=== PATIENT | female | born 1960 | race Caucasian/White ===

== ENCOUNTER 2020-06-15 09:12 | Outpatient (REF) | payer MEDICAID, SELFPAY ==
--- NOTE | ~2020-06-15 | US_ITS ---
EXAMINATION: US ABDOMEN COMPLETE CLINICAL INFORMATION: Evaluate for fatty liver disease. COMPARISON: None TECHNIQUE: Real-time imaging of the abdominal viscera. Technically limited study secondary to bowel gas and body habitus. FINDINGS: PANCREAS: The visualized head and body of the pancreas appears unremarkable. Remainder of the pancreas is obscured by bowel gas. ABDOMINAL AORTA: The proximal, mid, and distal segments are normal in caliber. INFERIOR VENA CAVA: Visualized portions are normal. LIVER: The liver is normal in size. The liver contour is normal. Diffuse increased echogenicity. No focal hepatic lesion. There is no intrahepatic biliary duct dilatation seen. GALLBLADDER: Normal. The gallbladder is physiologically distended without evidence of stones, sludge, polyps, wall thickening or pericholecystic fluid. COMMON BILE DUCT: Normal in caliber measuring 0.2 cm in diameter. RIGHT KIDNEY: Normal. No hydronephrosis. No renal calculi or focal parenchymal lesions. The kidney measures 12.6 cm in maximum dimension. LEFT KIDNEY: Normal. No hydronephrosis. No renal calculi or focal parenchymal lesions. The kidney measures 12.6 cm in maximum dimension. SPLEEN: Normal. The spleen measures 11.6 cm in maximum dimension. FREE FLUID: None. Study somewhat limited due to body habitus and bowel gas. US/US abdomen complete IMPRESSION: 1. Echogenic liver parenchyma, nonspecific, more commonly seen with hepatic steatosis. No focal lesions. No biliary duct dilatation. 2. Otherwise, unremarkable study.
== END 2020-06-15 09:13 | disposition home or self-care (01) ==
LOC: HO.US 09:12
PROVIDERS: Visit Provider General Practice
DX: R74.01 Elevation of levels of liver transaminase levels (principal)
CPT/HCPCS: 76700

== ENCOUNTER 2020-07-13 11:11 | Outpatient (REF) | payer MEDICAID, SELFPAY ==
--- NOTE | ~2020-07-13 | MM_ITS ---
EXAMINATION: MM SCREENING DIGITAL BREAST TOMOSYNTHESIS, BILATERAL CLINICAL INFORMATION: Screening. Asymptomatic. The lifetime risk of breast cancer based on the Tyrer-Cuzick Model is 4%. COMPARISON: Mammography: 06/09/2018, 05/26/2017, 11/22/2016, 09/15/2013 TECHNIQUE: Digital breast tomosynthesis is performed in both the craniocaudal and mediolateral oblique views along with computer-aided detection (CAD). Synthesized 2D images are generated from the tomosynthesis. FINDINGS: There are scattered areas of fibroglandular density (ACR BI-RADS breast composition Category b). There are no significant masses, abnormal calcifications, or other abnormalities. Parenchymal pattern is similar to prior studies. Scattered minor asymmetries are stable. No developing density. No significant changes. MM/MM tomosynthesis screening BI IMPRESSION: No mammographic evidence of malignancy. ASSESSMENT: BI-RADS 2: Benign RECOMMENDATION: Routine annual mammography screening. This patient's information was entered into a reminder system with a target due date for their next mammogram.
== END 2020-07-13 11:12 | disposition home or self-care (01) ==
LOC: HO.MAMMO 11:11
PROVIDERS: PCP General Practice; Visit Provider General Practice
DX: Z12.31 Encounter for screening mammogram for malignant neoplasm of breast (principal)
CPT/HCPCS: 77063; 77067

== ENCOUNTER 2023-03-07 12:18 | Outpatient (REF) | payer MEDICAID, SELFPAY ==
[2023-03-07 13:18] LABS: MANUAL DIFF FLAG NO
[2023-03-07 13:41] LABS: Basophils Absolute Auto 0.1 X10*3/uL (0.0-0.2); Basophils Percent Auto 1.2 % (0-2); Eosinophils Absolute Auto 0.2 X10*3/uL (0.0-0.4); Eosinophils Percent Auto 4.4 % (0-4); Hematocrit 44.2 % (37.0-47.0); Hemoglobin 14.6 g/dl (12.0-16.0); Imm Gran Abs Auto 0.01 X10*3/uL (0.00-0.03); Imm Gran Pct Auto 0.2 % (0.0-0.4); Lymphocytes Absolute Auto 1.5 X10*3/uL (1.2-4.9); Lymphocytes Percent Auto 34.3 % (20-40); Mean Corpuscular Hemoglobin 31.7 pg (27.0-33.0); Mean Corpuscular Volume 95.9 fL (80.0-98.0); Mean Platelet Volume 11.1 fL (9.4-12.3); Monocytes Absolute Auto 0.5 X10*3/uL (0.1-1.2); Monocytes Percent Auto 12.4 % (2-11); Neutrophils Absolute Auto 2.1 x10*3/uL (2.0-8.3); Neutrophils Percent Auto 47.5 % (45-73); Platelet Count 243 X10*3/uL (160-400); Red Blood Count 4.61 X10*6/uL (4.20-5.50); Red Cell Distribution Width 12.6 % (11.0-16.0); White Blood Count 4.3 X10*3/uL (4.8-10.8)
[2023-03-07 13:52] LABS: Estimated Average Glucose 146 mg/dL; Hemoglobin A1c % 6.7 % (<6.0)
[2023-03-07 14:13] LABS: Alanine Aminotransferase 192 U/L (0-31); Albumin Level 3.4 g/dL (3.5-5.0); Alkaline Phosphatase 195 U/L (39-117); Anion Gap 12 (12-20); Aspartate Amino Transferase 130 U/L (5-31); Bilirubin Total 0.8 mg/dL (0.0-1.0); Blood Urea Nitrogen 11 mg/dL (9-16); Calcium 9.4 mg/dL (8.4-10.2); Carbon Dioxide 27 mmol/L (22-29); Chloride 103 mmol/L (96-108); Estimated Glomerular Filt Rate > 60; Glucose Random 134 mg/dL (60-115); Potassium 3.8 mmol/L (3.3-5.1); Sodium 138 mmol/L (135-145); Total Protein 7.8 g/dL (6.5-8.0)
== END 2023-03-07 12:19 | disposition home or self-care (01) ==
LOC: HO.HHCL 12:18
PROVIDERS: Visit Provider General Practice
DX: I16.0 Hypertensive urgency (principal)
CPT/HCPCS: 36415; 80053; 83036; 85025

== ENCOUNTER 2023-03-07 13:11 | Emergency (ER) | payer MEDICAID, SELFPAY ==
--- NOTE | ~2023-03-07 | CT_ITS ---
EXAMINATION: CT HEAD WITHOUT CONTRAST CLINICAL INFORMATION: Blurred vision, hypotensive COMPARISON: None available. TECHNIQUE: Contiguous axial imaging was performed from the skull base to vertex without intravenous administration of contrast. This CT examination was performed using dose optimization techniques as appropriate, variously including the following: *Automated exposure control *Adjustment of mA and/or kV according to patient size (this includes techniques or standardized protocols for targeted exams where dose is matched to indication/reason for exam; i.e. extremities or head) *Use of iterative reconstruction technique DLP: 672 mGy-cm FINDINGS: There is no acute intra-axial, extra-axial bleed, masses or midline shift. There is no acute infarction in evolution. There is no edema. No abnormality seen in the posterior fossa. The lateral ventricles are symmetrical in size and configuration without enlargement. Bone windows reveal no calvarial abnormality. Bilateral paranasal sinuses and mastoid air cells are well-aerated. CT/CT head/brain wo IV con IMPRESSION: No acute intracranial process seen.
[2023-03-07 13:16] VITALS: BP 169/67; PULSE 77; RESP 16; TEMP 36.2; O2SAT 94; BMI 43.5
--- NOTE | 2023-03-07 13:17 | ED.GENADULT ---
HPI - General Adult General Chief complaint: Recheck/Abnormal Lab/Rx Stated complaint: ? Infection Both Eyes Time Seen by Provider: 03/07/23 23:28 History of Present Illness HPI narrative: The patient is a 62-year-old woman who had a scheduled appointment with her PCP today. Apparently her blood pressure was high at the PCPs office. With the patient told the primary care doctor that she had not taken her antihypertensive medications for her for the past couple of weeks because she feels dizzy. The patient reported that she had some visual blurriness. The PCP was concerned about the possibility of retinal hemorrhages and sent the patient to the emergency room. Apparently the blood pressure was 208/108. The patient had been given 0.2 mg of oral clonidine at the office before coming to the emergency room. The patient has also complained of mild headache and shortness of breath. Related Data Previous Rx's Medication Instructions Recorded diclofenac sodium 75 mg 75 mg PO BID 30 days #60 tabs 01/04/21 tablet,delayed release Allergies Allergy/AdvReac Type Severity Reaction Status Date / Time lisinopril [LISINOPRIL] Allergy Unknown COUGH Verified 03/07/23 13:16 lisinopril Allergy Unknown Cough Uncoded 03/07/23 13:16 Review of Systems Review of Systems: Yes all other systems are reviewed and are negative PMFSH Social History Social History Advance Directives: No Advance Directives Information Provided: No Physical Exam ED Vital Signs: Vital Signs - 24 hr 03/07/23 13:16 03/07/23 20:28 03/07/23 22:44 Temperature 97.2 F 97.9 F Pulse Rate 77 67 Respiratory Rate 16 16 Blood Pressure 169/67 H 198/86 H 133/61 Pulse Oximetry 94 96 Oxygen Delivery Method Room Air Room Air BMI result Body Mass Index 43.5 Const Other: The patient is awake, alert, pleasant, cooperative. She does not appear in any distress or seem acutely ill in any way. HENMT Other: Face is symmetrical. Tongue is midline. Mucous membranes moist. Eyes Other: Pupils are round equal, conjunctivae are clear, extraocular movements are intact, retinal exam of the undilated pupils seemed unremarkable to me. I did not appreciate the presence of any definite retinal abnormalities. Neck Other: No JVD, moving her neck easily Resp Other: Lungs are clear bilaterally, no sign of respiratory difficulty. Cardio Other: The patient had a regular rate and rhythm with no murmur Skin Other: Skin is dry and unremarkable Neuro Other: The patient is awake and alert and appropriate. She has a normal mental status. She does not seem uncomfortable. She is very pleasant. The face is symmetrical. Eye movements are normal. Pupillary responses are normal. Speech is normal. Moves all 4 extremities normally and appropriately. She seems completely neurologically intact. Visual acuity in the right eye was 20/50, visual acuity in the left eye was 20/70, bilateral visual acuity was 20/40. All of these visual acuities are uncorrected. The patient says that she normally wears glasses for distance vision but she did not have her glasses with her. Extrem Other: No peripheral edema. Think is all much classes are distant and reading in all before we did okay as a IV get a to but not affect the FX a chest the ABS I did that the distance vision and I think it Course Course Course Narrative: This is a rapid medical exam: Additional HPI, ROS, PE not included below will be deferred to primary provider. Patient is a 62-year-old female presenting to the ED from PCP office (Dr. Amador) with concern for bilateral retinal hemorrhages. Patient reports blurred vision in both eyes for several days. Patient states she has not been taking her BP medications because they make her dizzy. BP at PCP office was 208/108, pt medicated with 0.2mg clonidine in the office. BP elevated but improved from prior in triage. Pt also complains of mild headache and shortness of breath. Plan: tire inspector notified of patient; visual acuity, viral swabs Medical Decision Making Medical Decision Making [facility] Narrative: The patient is a 62-year-old female who was sent to the emergency room from her primary care provider's office. She had presented to the primary care provider's office today for a scheduled general physical. She was found to be hypertensive at 208/108. The patient admitted that she had not been taking her antihypertensive medication recently. She was given 0.2 mg of clonidine at the office and referred to the emergency room. There was concern about possible retinal hemorrhages. On my exam I did not appreciate any definite retinal abnormalities. Otherwise the patient seems quite stable and asymptomatic. Ultimately her blood pressure came down quite well as a was 133/61. Her EKG is unremarkable. A head CT had been ordered at triage that was negative. I think the patient may be discharged with instructions to resume her prescribed antihypertensive medications and to try to follow-up with an fiber worker. Lab Data 03/07/23 15:45 03/07/23 15:45 Labs: Lab Results 03/07/23 03/07/23 Range/Units 13:53 15:45 WBC 4.3 L (4.8-10.8) X10*3/uL RBC 4.62 (4.20-5.50) X10*6/uL Hgb 14.5 (12.0-16.0) g/dl Hct 43.1 (37.0-47.0) % MCV 93.3 (80.0-98.0) fL MCH 31.4 (27.0-33.0) pg MCHC 33.6 (31.0-35.0) g/dl RDW 12.8 (11.0-16.0) % Plt Count 253 (160-400) X10*3/uL MPV 10.0 (9.4-12.3) fL Immature Gran % (Auto) 0.2 (0.0-0.4) % Neut % (Auto) 45.0 (45-73) % Lymph % (Auto) 38.2 (20-40) % [place] % (Auto) 11.3 H (2-11) % Eos % (Auto) 4.6 H (0-4) % Baso % (Auto) 0.7 (0-2) % Lymph # (Auto) 1.7 (1.2-4.9) X10*3/uL [place] # (Auto) 0.5 (0.1-1.2) X10*3/uL Eos # (Auto) 0.2 (0.0-0.4) X10*3/uL Baso # (Auto) 0.0 (0.0-0.2) X10*3/uL Abs Immat Gran (auto) 0.01 (0.00-0.03) X10*3/uL Absolute Neuts (auto) 1.9 L (2.0-8.3) x10*3/uL Absolute Nucleated RBC 0.000 (0.0-0.012) X10*3/uL Nucleated RBC % (auto) 0.0 (0.0-0.2) /100WBC PT 12.4 (11.1-13.3) SEC INR 1.0 (0.9-1.1) Sodium 139 (135-145) mmol/L Potassium 4.2 (3.3-5.1) mmol/L Chloride 105 (96-108) mmol/L Carbon Dioxide 27 (22-29) mmol/L Anion Gap 11 L (12-20) BUN 12 (9-16) mg/dL Creatinine 0.76 (0.5-1.4) mg/dL Estim Creat Clear Calc 92.1 Estimated GFR > 60 Random Glucose 130 H (60-115) mg/dL Calcium 9.2 (8.4-10.2) mg/dL COVID-19 (JURGEN) Negative (Negative) COVID-19 Clin Com See Note Influenza Type A (DARRIUS) Negative (Negative) Influenza Type B (DARRIUS) Negative (Negative) Influenza A & B Note See Note Independent Interpretation I performed an independent interpretation of an: EKG Interpretation: He EKG at 23:49 shows normal sinus rhythm at 67 beats per minute. There is an incomplete right bundle-branch block. No acute ischemic changes. Discharge Plan Discharge Clinical Impression: Hypertension Patient Disposition: Home, Self-Care Additional Instructions: please resume your normal blood pressure medications. Please contact the [facility] on Friday. Please ask for an appointment with the eye doctors to get a more formal evaluation of your eyes and your vision. Return to the emergency room if you feel significantly worse before then. Prescriptions: No Action diclofenac sodium 75 mg tablet,delayed release (DR/EC) 75 mg PO BID 30 Days Qty: 60 3RF Referrals: Lashell [place] MD [Primary Care Provider] - (Hypertension, need for ophthalmology appointment) Interventions: ED Discharge Assessment Last Done: 03/08/23 00:09 Discharge Date/Time: 03/08/23 00:12
[2023-03-07 14:13] LABS: COVID-19 Test Negative (Negative); IDNOW Serial# 58CA691E
[2023-03-07 14:14] LABS: IDNOW Serial# 9DB6401D; Influenza A Negative (Negative); Influenza B2 Negative (Negative)
[2023-03-07 15:53] LABS: MANUAL DIFF FLAG NO
[2023-03-07 15:54] LABS: Basophils Percent Auto 0.7 % (0-2); Eosinophils Absolute Auto 0.2 X10*3/uL (0.0-0.4); Eosinophils Percent Auto 4.6 % (0-4); Hematocrit 43.1 % (37.0-47.0); Hemoglobin 14.5 g/dl (12.0-16.0); Imm Gran Abs Auto 0.01 X10*3/uL (0.00-0.03); Imm Gran Pct Auto 0.2 % (0.0-0.4); Lymphocytes Absolute Auto 1.7 X10*3/uL (1.2-4.9); Lymphocytes Percent Auto 38.2 % (20-40); Mean Corpuscular HGB Conc 33.6 g/dl (31.0-35.0); Mean Corpuscular Hemoglobin 31.4 pg (27.0-33.0); Mean Corpuscular Volume 93.3 fL (80.0-98.0); Monocytes Absolute Auto 0.5 X10*3/uL (0.1-1.2); Monocytes Percent Auto 11.3 % (2-11); Neutrophils Absolute Auto 1.9 x10*3/uL (2.0-8.3); Platelet Count 253 X10*3/uL (160-400); Red Blood Count 4.62 X10*6/uL (4.20-5.50); Red Cell Distribution Width 12.8 % (11.0-16.0); White Blood Count 4.3 X10*3/uL (4.8-10.8)
[2023-03-07 16:01] LABS: Prothrombin Time 12.4 SEC (11.1-13.3)
[2023-03-07 16:07] LABS: Anion Gap 11 (12-20); Blood Urea Nitrogen 12 mg/dL (9-16); Calcium 9.2 mg/dL (8.4-10.2); Carbon Dioxide 27 mmol/L (22-29); Chloride 105 mmol/L (96-108); Creatinine Clr Calc Pharmacy 92.1; Estimated Glomerular Filt Rate > 60; Glucose Random 130 mg/dL (60-115); Potassium 4.2 mmol/L (3.3-5.1); Sodium 139 mmol/L (135-145)
[2023-03-07 20:28] VITALS: BP 198/86; PULSE 67; RESP 16; TEMP 36.6; O2SAT 96
[2023-03-07 22:44] VITALS: BP 133/61
--- NOTE | 2023-03-07 23:43 | ECG_ITS ---
Test Reason : HIGH bp Blood Pressure : / mmHG Vent. Rate : 067 BPM Atrial Rate : 067 BPM P-R Int : 164 ms QRS Dur : 104 ms QT Int : 464 ms P-R-T Axes : 009 020 068 degrees QTc Int : 490 ms Normal sinus rhythm Incomplete right bundle branch block Prolonged QT Abnormal ECG No previous ECGs available Referred By: Chino Truong Electronically Signed By:TASHA FLOWERS
== END 2023-03-08 00:12 | disposition home or self-care (01) ==
PROVIDERS: Registered Nurse Emergency; Emergency Provider Emergency Medicine; PCP General Practice
DX: I10 Essential (primary) hypertension (principal); R42 Dizziness and giddiness; H53.8 Other visual disturbances; Z11.52 Encounter for screening for COVID-19
CPT/HCPCS: 36415; 70450; 80048; 85025; 85610; 87502; 87635; 93005; 99284

== ENCOUNTER → 2023-03-07 23:43 | Outpatient (BNV) | payer MEDICAID, SELFPAY | PROVIDERS: Emergency Provider Emergency Medicine; PCP General Practice; Visit Provider Internal Medicine | DX: I45.10 Unspecified right bundle-branch block (principal); I45.81 Long QT syndrome | CPT/HCPCS: 93010 ==

== ENCOUNTER 2023-05-12 15:20 | Outpatient (REF) | payer MEDICAID, SELFPAY ==
--- NOTE | ~2023-05-12 | XR_ITS ---
EXAMINATION: XR KNEE, BILATERAL CLINICAL INFORMATION: Chronic pain in both knees. COMPARISON: 10/26/2018 AP bilateral knees. TECHNIQUE: AP, lateral and axial views of bilateral knees. FINDINGS: RIGHT KNEE: Small joint effusion. Moderate medial joint space narrowing with small marginal osteophytes. Small posterior patellar osteophytes. LEFT KNEE: Mild medial joint space narrowing. Small joint effusion. Tiny marginal osteophytes. XR/XR knee LT 3V IMPRESSION: 1. Moderate degenerative changes right knee. 2. Mild degenerative changes left knee.
--- NOTE | ~2023-05-12 | XR_ITS ---
EXAMINATION: XR KNEE, BILATERAL CLINICAL INFORMATION: Chronic pain in both knees. COMPARISON: 10/26/2018 AP bilateral knees. TECHNIQUE: AP, lateral and axial views of bilateral knees. FINDINGS: RIGHT KNEE: Small joint effusion. Moderate medial joint space narrowing with small marginal osteophytes. Small posterior patellar osteophytes. LEFT KNEE: Mild medial joint space narrowing. Small joint effusion. Tiny marginal osteophytes. XR/XR knee RT 3V IMPRESSION: 1. Moderate degenerative changes right knee. 2. Mild degenerative changes left knee.
== END 2023-05-12 15:21 | disposition home or self-care (01) ==
LOC: HO.HHCX 15:20
PROVIDERS: Visit Provider General Practice
DX: M25.561 Pain in right knee (principal); M25.562 Pain in left knee; G89.29 Other chronic pain
CPT/HCPCS: 73562

== ENCOUNTER 2024-04-08 11:04 | Outpatient (REF) | payer MEDICAID, SELFPAY ==
[2024-04-08 13:01] LABS: MANUAL DIFF FLAG NO
[2024-04-08 13:12] LABS: Basophils Percent Auto 0.8 % (0-2); Eosinophils Absolute Auto 0.2 X10*3/uL (0.0-0.4); Eosinophils Percent Auto 3.8 % (0-4); Hematocrit 43.6 % (37.0-47.0); Hemoglobin 14.7 g/dl (12.0-16.0); Imm Gran Abs Auto 0.02 X10*3/uL (0.00-0.03); Imm Gran Pct Auto 0.4 % (0.0-0.4); Lymphocytes Absolute Auto 1.6 X10*3/uL (1.2-4.9); Mean Corpuscular HGB Conc 33.7 g/dl (31.0-35.0); Mean Corpuscular Hemoglobin 30.7 pg (27.0-33.0); Mean Platelet Volume 10.6 fL (9.4-12.3); Monocytes Absolute Auto 0.5 X10*3/uL (0.1-1.2); Monocytes Percent Auto 11.1 % (2-11); Neutrophils Absolute Auto 2.4 x10*3/uL (2.0-8.3); Neutrophils Percent Auto 49.9 % (45-73); Platelet Count 249 X10*3/uL (160-400); Red Blood Count 4.79 X10*6/uL (4.20-5.50); Red Cell Distribution Width 12.5 % (11.0-16.0); White Blood Count 4.8 X10*3/uL (4.8-10.8)
[2024-04-08 13:17] LABS: Appearance Urine Cloudy; Color Urine Dark Yellow; Glucose Urine UA Negative (Negative); Leukocyte Esterase Urine Trace (Negative); Nitrite Urine Negative (Negative); Specific Gravity - Urine 1.025 (1.005-1.025); UMIC TRIGGER UACC YES; Urine Blood Negative (Negative); Urine Ketones Trace mg/dL (Negative); Urine Protein Trace mg/dL (Neg-Trace)
[2024-04-08 13:27] LABS: Estimated Average Glucose 166 mg/dL; Hemoglobin A1C 222.1982 umol/L; Hemoglobin A1c % 7.4 % (<6.0)
[2024-04-08 13:28] LABS: Bacteria Urine 1+ (None Seen); Hyaline Casts Urine 0-2 /LPF (0-2); RBC Urine 0-2 /HPF (0-2); WBC Urine 0-5 /HPF (0-5)
[2024-04-08 13:58] LABS: Alanine Aminotransferase 57 U/L (0-31); Albumin Level 3.6 g/dL (3.5-5.0); Alkaline Phosphatase 154 U/L (39-117); Anion Gap 10 (12-20); Aspartate Amino Transferase 56 U/L (5-31); Bilirubin Total 0.7 mg/dL (0.0-1.0); Blood Urea Nitrogen 12 mg/dL (9-16); Calcium 8.8 mg/dL (8.4-10.2); Carbon Dioxide 27 mmol/L (22-29); Chloride 106 mmol/L (96-108); Cholesterol 216 mg/dL (<200); Estimated Glomerular Filt Rate > 60; Glucose Random 150 mg/dL (60-115); HDL Cholesterol 58 mg/dL (>40); LDL Cholesterol Calculated 136 mg/dL (<100); Potassium 3.8 mmol/L (3.3-5.1); Sodium 139 mmol/L (135-145); Triglycerides 113 mg/dL (<150)
[2024-04-08 14:16] LABS: TSH reflex Free T4 3.88 uIU/mL (0.32-4.0)
--- OUTSIDE RECORDS SUMMARY | 2024-04-08 14:58 | XMS_ITS | Encounter Summary ---
Author Organization [employer] Address [address] [place] [address] Care Team Providers Care Account Officer Name Role Phone Lashell [place] MD Primary Care Provider [phone] Reason for Visit * Reason Onset Date Comments Prior Authorization 07/25/2022 Encounter Details Date Type Department Care Team ([facility] st Contact Info) Description 07/25/2022 Telephone [facility] [address] [place] [address] Lashell [place] MD [address] [place] [address] Prior Authorization Social History Tobacco Use Types Packs/Day Years Used Date Smoking Tobacco: Never Smokeless Tobacco: Never Alcohol Use Standard Drinks/Week Comments Never 0 (1 standard drink = 0.6 oz pur e alcohol) Depression Answer Date Recorded Patient Health Questionnaire-9 Score 18 06/26/2023 Patient Health Questionnaire-9 Score 18 06/26/2023 Last PHQ-9: Questionnaire Data Not on file 0 06/26/2023 Housing Stability Answer Date Recorded What is your housing situation today? I have broderick bansal 08/08/[address] you li ve. Do you have problems with any of the following? None of the above 08/08/2023 Food Insecurity Answer Date Recorded Within the past 12 months, y ou worried that your food would run out before you got money to buy more: Never True 08/08/2023 Within the past 12 months,th e food you bought just didn't last and you didn't have enough money to get more: Never True Transportation Answer Date Recorded In the past 12 months, has l ack of transportation kept you from medical appts, meetings, work or from getting things needed for daily living? No 08/08/2023 Utilities Answer Date Recorded In the past 12 months, has t he electric, gas, oil or water company threatened to shut off services in your home? No 08/08/2023 Depression Answer Date Recorded Patient Health Questionnaire-2 Score 5 06/26/2023 Comments Unknown Sex and Gender Information Value Date Recorded Sex Assigned at Female 01/07/2022 10:15 AM EDT Legal Sex Female 10:15 AM EDT Gender Identity Female 01/07/2022 10:15 AM EDT Sexual Orientation Straight 01/07/2022 10 :15 AM EDT COVID-19 Exposure Response Date Recorded In the last 10 days, have yo u been in contact with someone who was confirmed or suspected to have Coronavirus/COVID-19? No / Unsure 07/22/2022 3:31 PM EDT documented as of this encounter Miscellaneous Notes * Telephone Encounter - Yumi Stubbs - 08/07/2022 9:22 AM EDT Tc from pt requesting status on PA. Certified Solid Waste Facility Operator advised pt PA is still waiting on PCP signature. * Telephone Encounter - Jennyfer Paz - 08/01/2022 2:59 PM EDT PA was initiated for provider, waiting on signature * Telephone Encounter - Anali Byrnes - 08/01/2022 2:49 PM EDT Tc from pt calling stated still need a Pa for medication qsymia 3.75mg-23mg. Renae Pharmacist saidqsymia is made of two drugs- phentermine (will not be covered, but is less costly OOP than qsymia) and topiramate (will most likely be covered by insurance). PCP DR. [place] * Telephone Encounter - Jennyfer Paz - 07/26/2022 1:27 PM EDT PA generated for provider * Telephone Encounter - Jennyfer Paz - 07/25/2022 3:29 PM EDT Please advise on PA request, thank you * Telephone Encounter - Jaren Stark - 07/25/2022 3:18 PM EDT Tc from pt stating needs a PA for Qsymia 3.75mg/ 23 mg capsules, Certified Solid Waste Facility Operator confirmed with pharmacy. Please contact at [phone] documented in this encounter Plan of Treatment Not on file documented as of this encounter Visit Diagnoses Not on filedocumented in this encounter Additional Health Concerns Assessment Noted Time PHQ-9 Depression Total Score: 20 023 3:48 PM EDT documented as of this encounter Care Teams Account Officer Relationship Specialty Start Date End Date Lashell H[place] MD [address] [place] [address] PCP - General Family Medicine 11/08/19 documented as of this encounter
--- OUTSIDE RECORDS SUMMARY | 2024-04-08 14:58 | XMS_ITS | Encounter Summary ---
Author Organization [employer] Address [address] [place] [address] Care Team Providers Care Forger Helper Name Role Phone Lashell H[place] MD Primary Care Provider [phone] Reason for Visit * Reason Onset Date Comments RS APPT 03/17/2024 Encounter Details Date Type Department Care Team ([facility] st Contact Info) Description 03/17/2024 Telephone [facility] [address] [place] [address] Rowan Franklin MA RS APPT Social History Tobacco Use Types Packs/Day Years Used Date Smoking Tobacco: Never Passive Smoke Exposure: Never Smokeless Tobacco: Never Alcohol Use Standard [...] Orientation Straight 01/07/2022 10 :15 AM EDT documented as of this encounter Miscellaneous Notes * Telephone Encounter - Rowan Franklin MA - 03/17/2024 9:20 AM EST T/C placed spoke with pt, pt agreed to rs appt from 04/02/24 to 04/08/24 documented in this encounter Plan of Treatment Not on file documented as of this encounter Visit Diagnoses Not on filedocumented in this encounter Additional Health Concerns Assessment Noted Time PHQ-9 Depression Total Score: 18 024 2:05 PM EDT documented as of this encounter Care Teams Forger Helper Relationship Specialty Start Date End Date Lashell H[place] MD [address] [place] [address] PCP - General Family Medicine 11/08/19 documented as of this encounter
--- OUTSIDE RECORDS SUMMARY | 2024-04-08 14:58 | XMS_ITS | Encounter Summary ---
Author Organization [employer] Address [address] [facility] [address] [place] [address] Care Team Providers Care Dianeticist Name Role Phone Lashell [place] MD Primary Care Provider [phone] Reason for Visit * Reason Comments Extraction Encounter Details Date Type Department Care Team (Latest Contact Info) Description 04/02/2024 2:30 PM EST Office Visit [facility] [address] [place], [place] [id number] Juwan Nicole DDS [address] [place], [place] [id number] Chronic periodontitis (Primary Dx) Social History Tobacco Use Types Packs/Day Years [...] AM EDT documented as of this encounter Last Filed Vital Signs Vital Sign Reading Time Taken Comments Blood Pressure 180/94 04/02/2024 2:28 PM EST Pulse - - Temperature - - Respiratory Rate - - Oxygen Saturation - - Inhaled Oxygen Concentration - - Weight - - Height - - Body Mass Index - - documented in this encounter Progress Notes * Juwan Nicole DDS - 04/02/2024 2:30 PM EST Georgina Foley presents for previously DX and planned full mouth extractions. However, pt. Requested general anesthesia. Referred to JO[facility], Also , we advised Georgina to take antihypertensive [place] seriously, her BP indicated HTN ; Georgina admitted not having taken her pills lately. ASHA GARC[employer] Manager Lucia Ceron Dentist Dr. Nicole documented in this encounter Plan of Treatment Not on file documented as of this encounter Procedures Procedure Name Priority Date/Time Associated Diagnosis Comments NO CHARGE VISIT Routine 04/02/2024 2:30 PM EST documented in this encounter Visit Diagnoses Diagnosis Chronic periodontitis- Primary Chronic periodontitis, unspecified documented in this encounter Additional Health Concerns Assessment Noted Time PHQ-9 Depression Total Score: 18 024 2:05 PM EDT documented as of this encounter Care Teams Dianeticist Relationship Specialty Start Date End Date Lashell [place] MD [address] [place] [address] PCP - General Family Medicine 11/08/19 documented as of this encounter
--- OUTSIDE RECORDS SUMMARY | 2024-04-08 14:58 | XMS_ITS | Encounter Summary ---
Author Organization [employer] Address [address] [facility] 7t [place] [address] Care Team Providers Care Machine Stitcher Name Role Phone Lashell Hatch MD Primary Care Provider [phone] Reason for Visit * Reason Comments Annual Exam Encounter Details Date Type Department Care Team ([facility] st Contact Info) Description 04/08/2024 10:30 AM EST Office Visit [facility] MEDICINE [address] [place], [place] [phone] Lashell Hatch MD [address] [place] [address] Depressive disorder (Primary Dx); Uncontrolled mild persistent asthma; Essential hypertension; Nonalcoholic fatty liver disease; Major depression, recurrent, chronic (CMS/HCC); Urinary incontinence, unspecified type Social History Tobacco Use Types Packs/Day Years Used Date Smoking Tobacco: Never Passive Smoke Exposure: Never Smokeless Tobacco: Never Tobacco Cessation:Counseling Given: Not Answered Alcohol Use Standard Drinks/Week Comments Never 0 (1 standard drink = 0.6 oz pur e alcohol) Depression Answer Date Recorded Patient Health Questionnaire-9 Score 25 04/08/2024 Patient Health Questionnaire-9 Score 25 04/08/2024 Last PHQ-9: Questionnaire Data Not on file 0 04/08/2024 Housing Stability Answer Date Recorded What is your housing situation today? I have broderick rolf 08/08/[address] you li [...] Answer Date Recorded Patient Health Questionnaire-2 Score 6 04/08/2024 Comments Unknown Sex and Gender Information Value Date Recorded Sex Assigned at Female 01/07/2022 10:15 AM EDT Legal Sex Female 10:15 AM EDT Gender Identity Female 01/07/2022 10:15 AM EDT Sexual Orientation Straight 01/07/2022 10 :15 AM EDT documented as of this encounter Last Filed Vital Signs Vital Sign Reading Time Taken Comments Blood Pressure 160/90 04/08/2024 10:37 AM EST Pulse 90 04/08/2024 10:37 AM EST Temperature 36.1 ??C (97 ??F) 04/08/2024 10:37 AM EST Respiratory Rate 20 04/08/2024 10:37 AM EST Oxygen Saturation - - Inhaled Oxygen Concentration - - Weight 110 kg (241 lb 12.8 oz) 04/08/2024 10:37 AM EST Height 160 cm (5' 3 ) 04/08/2024 10:37 AM EST Body Mass Index 42.83 04/08/2024 10:37 AM EST documented in this encounter Plan of Treatment Scheduled Orders Name Type Priority Associated Diagnoses Orde r Schedule HIV-1/2 Antigen and Antibodies, Fourth Generation, with Reflexes Lab Routine Nonalcoholic fatty liver disease Expected: 04/08/2024 (Approximate), Expires: 04/08/2025 Hepatitis C Antibody with Reflex to HCV, RNA, Quantitative, Real-Time PCR Lab Routine Nonalcoholic fatty liver disease Expected: 04/08/2024, Expires: 04/08/2025 documented as of this encounter Procedures Procedure Name Priority Date/Time Associated Diagnosis Comments URINALYSIS, COMPLETE, WITH REFLEX TO CULTURE Routine 04/08/2024 11:10 AM EST Urinary incontinence, unspecified type TSH W/REFLEX TO FT4 Routine 04/08/2024 1 1:10 AM EST Essential hypertension CBC WITH AUTO DIFFERENTIAL Routine 04/08/2024 11:10 AM EST Major depression, recurrent, chronic (CMS/HCC) HEMOGLOBIN A1C Routine 04/08/2024 11:10 AM EST Essential hypertension LIPID PANEL, STANDARD Routine 04/08/2024 11:10 AM EST Essential hypertension COMPREHENSIVE METABOLIC PANEL Routine 04/08/2024 11:10 AM EST Essential hypertension documented in this encounter Results * (ABNORMAL) Urinalysis, Complete, with Reflex to Culture (04/08/2024 11:10 AM EST) Color Urine Dark Yellow [facility] Appearance Urine Cloudy [facility] PH 6.0 5.0 - 9.0 [facility] Glucose Urine UA Negative Negative mg/dL [facility] Urine Blood Negative Negative [facility] Specific [place] - Urine 1.025 1.005 - 1.025 [facility] Urine Protein Trace Neg-Trace mg/dL [facility] Urine Ketones Trace Negative mg/dL [facility] Nitrite Urine Negative Negative [facility] Leukocyte Esterase Urine Trace(A) Negative [facility] RBC Urine 0-2 0 - 2 /HPF [facility] Urine WBC 0-5 0 - 5 /HPF [facility] Urine Squamous Epithelial Cell 6-10 0 - 2 /HPF [facility] Urine Bacteria 1+ None Seen [facility] Hyaline Casts, Urine 0-2 0 - 2 /LPF [facility] Urine 04/08/2024 11:1 0 AM EST 04/08/2024 1:05 PM EST Narrative [facility] - 04/08/2024 1:29 PM EST Urine, Clean Catch us Lashell Hatch MD LAB URINE ORDERABLES Final Res ult [facility] [address] [place] [phone] * (ABNORMAL) CBC auto differential (04/08/2024 11:10 AM EST) White Blood Count 4.8 4.8 - 10.8 X10*3/uL [facility] Red Blood Count 4.79 4.20 - 5.50 X10*6/uL [facility] Hemoglobin 14.7 12.0 - 16.0 g/dl [facility] Hematocrit 43.6 37.0 - 47.0 % [facility] Mean Corpuscular Volume 91.0 80.0 - 98.0 fL [facility] Mean Corpuscular Hemoglobin 30.7 27.0 - 33.0 pg [facility] Mean Corpuscular HGB Conc 33.7 31.0 - 35.0 g/dl [facility] Red Cell Distribution Width 12.5 11.0 - 16.0 % [facility] Platelet Count 249 160 - 400 X10*3/uL [facility] Mean Platelet Volume 10.6 9.4 - 12.3 fL [facility] Neutrophils Percent Auto 49.9 45 - 73 % [facility] Imm Gran Pct Auto 0.4 0.0 - 0.4 % [facility] Lymphocytes Percent Auto 34.0 20 - 40 % [facility] Monocytes Percent Auto 11.1(H) 2 - 11 % [facility] Eosinophils Percent Auto 3.8 0 - 4 % [facility] Basophils Percent Auto 0.8 0 - 2 % [facility] NRBC Pct Auto 0.0 0.0 - 0.2 /100WBC [facility] Neutrophils Absolute Auto 2.4 2.0 - 8.3 x10*3/uL [facility] Imm Gran Abs Auto 0.02 0.00 - 0.03 X10*3/uL [facility] Lymphocytes Absolute Auto 1.6 1.2 - 4.9 X10*3/uL [facility] Monocytes Absolute Auto 0.5 0.1 - 1.2 X10*3/uL [facility] Eosinophils Absolute Auto 0.2 0.0 - 0.4 X10*3/uL [facility] Basophils Absolute Auto 0.0 0.0 - 0.2 X10*3/uL [facility] NRBC Abs Auto 0.000 0.0 - 0.012 X10*3/uL [facility] Blood Venous blood specimen / Unknown 04/08/2024 11:10 AM EST 04/08/2024 12:57 PM EST us Lashell Hatch MD LAB BLOOD ORDERABLES Final Res ult [facility] [address] [place] [phone] * (ABNORMAL) Lipid Panel, Standard (04/08/2024 11:10 AM EST) Triglycerides 113 <150 mg/dL [facility] Comment:Desirable Triglyceri de: less than 150 mg/dLBorderline High Triglyceride 150-199 mg/dLHigh Triglyceride: 200-499 mg/dLVery High Triglyceride: greater than or equal to 5OO mg/dL Cholesterol 216(H) <200 mg/dL [facility] Comment:Desirable Cholestero l: less than 200 mg/dLBorderline High Cholesterol: 200-239 mg/dLHigh Cholesterol: greater than 239 mg/dL LDL Cholesterol Calculated 136(H) <100 mg/dL [facility] Comment:Desirable LDL: less than 100 mg/dLNear Optimal/Above Optimal LDL: 110- 129 mg/dLBorderline High LDL: 130-159 mg/dLHigh LDL: 160-189 mg/dLVery High LDL: greater than or equal to 190 mg/dL HDL Cholesterol 58 >40 mg/dL [facility] Comment:Desirable HDL: great er than 40 mg/dL Note: This HDL assay may give artificially low results in patients with liver disease. Blood Venous blood specimen / Unknown 04/08/2024 11:10 AM EST 04/08/2024 12:57 PM EST us Lashell Hatch MD LAB BLOOD ORDERABLES Final Res ult [facility] [address] [place] [phone] * (ABNORMAL) Comprehensive Metabolic Panel (04/08/2024 11:10 AM EST) Sodium 139 135 - 145 mmol/L [facility] Potassium 3.8 3.3 - 5.1 mmol/L [facility] Chloride 106 96 - 108 mmol/L [facility] Carbon Dioxide 27 22 - 29 mmol/L [facility] Anion Gap 10(L) 12 - 20 [facility] Urea Nitrogen (BUN) 12 9 - 16 mg/dL [facility] Creatinine, Serum 0.58 0.5 - 1.4 mg/dL [facility] Estimated Glomerular Filt Rate >60 [facility] Comment:Chronic Kidney Disea se: Estimated GFR < 60 mL/min/[id number] Kidney Disease: Estimated GFR < 15 mL/min/1.73m2 Glucose 150(H) 60 - 115 mg/dL [facility] Calcium 8.8 8.4 - 10.2 mg/dL [facility] Bilirubin, Total 0.7 0.0 - 1.0 mg/dL [facility] Aspartate Amino Transferase 56(H) 5 - 31 U/L [facility] Alanine Aminotransferase 57(H) 0 - 31 U/L [facility] Total Protein 8.0 6.5 - 8.0 g/dL [facility] Albumin Level 3.6 3.5 - 5.0 g/dL [facility] Alkaline Phosphatase 154(H) 39 - 117 U/L [facility] Blood Venous blood specimen / Unknown 04/08/2024 11:10 AM EST 04/08/2024 12:57 PM EST us Lashell Hatch MD LAB BLOOD ORDERABLES Final Res ult [facility] [address] [place] [phone] * (ABNORMAL) Hemoglobin A1c (04/08/2024 11:10 AM EST) Hemoglobin A1c 7.4(H) <6.0 % [facility] Comment:Hemoglobin A1C Refer ence Range Adults: 4.8 - 6.0 % Non diabetic: < 6.0 % Goal: < 7.0 %Additional Action Suggested: > 8.0 %Note: Hemoglobin A1c results are invalid for patients with abnormal amounts of HbF. Blood transfusions may impact the HbA1c concentration in the patient sample. Estimated Average Glucose 166 mg/dL [facility] Comment:eAG = Estimated ave rage glucose which is %A1C expressed asaverage glucose, using the formula of the [id number]-[id number] Glucose study (ADAG), Diabetes Care, Vol.31,#8,2007 Blood Venous blood specimen / Unknown 04/08/2024 11:10 AM EST 04/08/2024 12:57 PM EST us Lashell Hatch MD LAB BLOOD ORDERABLES Final Res ult [facility] [address] [place] [phone] * TSH W/Reflex to FT4 (04/08/2024 11:10 AM EST) TSH reflex Free T4 3.88 0.32 - 4.0 uIU/mL [facility] Blood Venous blood specimen / Unknown 04/08/2024 11:10 AM EST 04/08/2024 12:57 PM EST us Lashell Hatch MD LAB BLOOD ORDERABLES Final Res ult Performing Organization Address City/[facility]/ZIP Co de Phone Number [facility] [address] [place] [phone] documented in this encounter Visit Diagnoses Diagnosis Depressive disorder- Primary Depressive disorder, not elsewhere classified Uncontrolled mild persistent asthma Essential hypertension Unspecified essential hypertension Nonalcoholic fatty liver disease Major depression, recurrent, chronic (CMS/HCC) Urinary incontinence, unspecified type documented in this encounter Additional Health Concerns Assessment Noted Time PHQ-9 Depression Total Score: 25 025 10:39 AM EST documented as of this encounter Care Teams Machine Stitcher Relationship Specialty Start Date End Date Lashell Hatch MD [address] [place] [address] PCP - General Family Medicine 11/08/19 documented as of this encounter
--- OUTSIDE RECORDS SUMMARY | 2024-04-08 14:58 | XMS_ITS | Encounter Summary ---
Author Organization [employer] Address [address] [facility] [address] [place] [address] Care Team Providers Care Admission Nurse Name Role Phone Lashell Hatch MD Primary Care Provider [phone] Encounter Details Date Type Department Care Team (Latest Contact Info) Description 04/08/2024 Travel Social History Tobacco Use Types Packs/Day Years [...] AM EDT documented as of this encounter Plan of Treatment Not on file documented as of this encounter Visit Diagnoses Not on filedocumented in this encounter Additional Health Concerns Assessment Noted Time PHQ-9 Depression Total Score: 25 025 10:39 AM EST documented as of this encounter Care Teams Admission Nurse Relationship Specialty Start Date End Date Lashell Hatch MD [address] [place] [address] PCP - General Family Medicine 11/08/19 documented as of this encounter
--- OUTSIDE RECORDS SUMMARY | 2024-04-08 14:58 | XMS_ITS | Encounter Summary ---
Author Organization [employer] Address [address] [facility] [address] [place] [address] Care Team Providers Care Twister Hand Name Role Phone Lashell Hatch MD Primary Care Provider [phone] Reason for Visit * Reason Comments Pre-visit Planning (Unable to reach for PVP screening, LVM) Encounter Details Date Type Department Care Team ([facility] st Contact Info) Description 03/30/2024 Patient Outreach [facility] MEDICINE [address] [place] [address] Lashell Hatch MD [address] [place] [address] Pre-visit Planning ((Unable to reach for PVP screening, LVM)) Social History Tobacco Use Types Packs/Day Years [...] AM EDT documented as of this encounter Progress Notes * Chasity Youssef - 03/30/2024 9:22 AM EST JOHN Gaspar. Placed outbound call to patient to complete pre-visit planning. No answer at this time. Patient name and were not confirmed. CC left voicemail requesting return call. Direct contact information provided. documented in this encounter Plan of Treatment Not on file documented as of this encounter Visit Diagnoses Not on filedocumented in this encounter Additional Health Concerns Assessment Noted Time PHQ-9 Depression Total Score: 18 024 2:05 PM EDT documented as of this encounter Care Teams Twister Hand Relationship Specialty Start Date End Date Lashell Hatch MD [address] [place] [phone] PCP - General Family Medicine 11/08/19 documented as of this encounter
--- OUTSIDE RECORDS SUMMARY | 2024-04-08 14:58 | XMS_ITS | Encounter Summary ---
Author Organization [employer] Address [address] [facility] [address] [place] [address] Care Team Providers Care Swimming Pool Installer Name Role Phone Lashell Hatch MD Primary Care Provider [phone] Encounter Details Date Type Department Care Team (Late st Contact Info) Description 12/18/2023 Orders Only [facility] MEDICINE [address] [place], [place] [phone] Lashell Hatch MD [address] [place], [place] [phone] Essential hypertension (Primary Dx); Hypertensive urgency Social History Tobacco Use Types Packs/Day Years [...] as of this encounter Plan of Treatment Scheduled Orders Name Type Priority Associated Diagnoses Orde r Schedule Comprehensive Metabolic Panel Lab Routine Essential hypertension Expected: 12/18/2023 (Approximate), Expires: 12/17/2024 CBC auto differential Lab Routine Essential hypertension Expected: 12/18/2023 (Approximate), Expires: 12/17/2024 TSH W/Reflex to FT4 Lab Routine Essential hypertension Expected: 12/18/2023 (Approximate), Expires: 12/17/2024 documented as of this encounter Visit Diagnoses Diagnosis Essential hypertension- Primary Unspecified essential hypertension Hypertensive urgency documented in this encounter Additional Health Concerns Assessment Noted Time PHQ-9 Depression Total Score: 18 024 2:05 PM EDT documented as of this encounter Care Teams Swimming Pool Installer Relationship Specialty Start Date End Date Lashell Hatch MD [address] [place] [address] PCP - General Family Medicine 11/08/19 documented as of this encounter
--- OUTSIDE RECORDS SUMMARY | 2024-04-08 14:58 | XMS_ITS | Encounter Summary ---
Author Organization [employer] Address [address] [facility] 7t [place] [address] Care Team Providers Care Miter Cutter Name Role Phone Lashell Hatch MD Primary Care Provider [phone] Reason for Visit * Reason Onset Date Comments ER Follow-up 03/12/2023 Encounter Details Date Type Department Care Team ([facility] st Contact Info) Description 03/12/2023 Telephone [facility] MEDICINE [address] [place] [address] Lashell Hatch MD [address] [place] [address] ER Follow-up Social History Tobacco Use Types Packs/Day Years [...] encounter Miscellaneous Notes * Telephone Encounter - Jaren Stark - 03/13/2023 11:26 AM EST Tc from pt returning call. * Telephone Encounter - Jaren Stark - 03/12/2023 9:00 AM EST Patient calling to report ED visit on : Date: 03/07/23 [place] [facility] [place]en for: headache and weakness pt DX with high blood pressure, pt stated still has a headache and weakness Patient advised will forward to team nurse for follow up. Please contact at [phone] documented in this encounter Plan of Treatment Not on file documented as of this encounter Visit Diagnoses Not on filedocumented in this encounter Additional Health Concerns Assessment Noted Time PHQ-9 Depression Total Score: 20 023 3:48 PM EDT documented as of this encounter Care Teams Miter Cutter Relationship Specialty Start Date End Date Lashell Hatch MD [address] [place] [phone] PCP - General Family Medicine 11/08/19 documented as of this encounter
--- OUTSIDE RECORDS SUMMARY | 2024-04-08 14:58 | XMS_ITS | Encounter Summary ---
Author Organization [employer] Address [address] [facility] [address]t [place] [address] Care Team Providers Care Motion Study Engineer Name Role Phone Lashell Hatch MD Primary Care Provider [phone] Encounter Details Date Type Department Care Team (Late st Contact Info) Description 03/06/2022 Telephone [facility] MEDICINE [address] [place], [place] [phone] Lashell Hatch MD [address] [place], [place] [phone] Social History Tobacco Use Types Packs/Day Years Used Date Smoking Tobacco: Never Assessed Comments Unknown Sex and Gender Information Value Date Recorded Sex Assigned at Female 01/07/2022 10:15 AM EDT Legal Sex Female 10:15 AM EDT Gender Identity Female 01/07/2022 10:15 AM EDT Sexual Orientation Straight 01/07/2022 10 :15 AM EDT documented as of this encounter Plan of Treatment Not on file documented as of this encounter Visit Diagnoses Not on filedocumented in this encounter Care Teams Motion Study Engineer Relationship Specialty Start Date End Date Lashell Hatch MD [address] [place], [place] [phone] PCP - General Family Medicine 11/08/19 documented as of this encounter
--- OUTSIDE RECORDS SUMMARY | 2024-04-08 14:58 | XMS_ITS | Clinical Summary ---
Author Organization [employer] Address [address] [facility] [address] [place] [address] Care Team Providers Care Television Servicer Name Role Phone Lashell Hatch MD Primary Care Provider [phone] Allergies Active Allergy Reactions Criticality Noted Date Comments Jabari Inhibitors Cough 07/27/2014 Lisinopril Cough 03/05/2024 Medications * This document contains information received from the source organization and may not represent a complete record from that organization. nabumetone (Relafen) 500 MG tablet Take 1 tablet (500 mg) by mouth 2 times daily. 60 tablet 11 4 025 Active topiramate (Topamax) 25 MG tabletIndication s:Morbid obesity (CMS/HCC) TAKE 1 TABLET BY MOUTH EVERY MORNING 90 tablet 1 4 Active Ventolin HFA 108 (90 Base) MCG/ACT inhaler INHALE 2 PUFFS BY MOUTH EVERY 4 HOURS 18 g 11 4 Active fluticasone furoate (Arnuity Ellipta) 100 MCG/ACT inhaler Inhale 1 puff Once per day. 1 each 11 4 025 Active chlorhexidine (Peridex) 0.12 % solutionIndicati ons:Dental abscess Swish 15 mL morning and night for 1 minute. Spit, do not swallow. Do not eat or drink for 30 minutes following use. 473 mL 4 Active losartan-hydroCH LOROthiazide (Hyzaar) 100-25 MG tabletIndication s:Benign hypertension TAKE 1 TABLET BY MOUTH EVERY MORNING 90 tablet 3 4 Active amLODIPine (Norvasc) 10 MG tabletIndication s:Benign hypertension TAKE 1 TABLET BY MOUTH EVERY MORNING 90 tablet 3 4 Active FLUoxetine (PROzac) 20 MG capsule Take 1 capsule (20 mg) by mouth Once per day. 90 capsule 3 5 026 Active FLUoxetine (PROzac) 10 MG tablet Take 1 tablet (10 mg) by mouth Once per day. 90 tablet 3 4 025 Discontinu ed(Dose adjustment ) acetaminophen (Tylenol 8 Hour) 650 MG ER tabletIndication s:Dental abscess Take 1 tablet (650 mg) by mouth every 8 (eight) hours if needed for mild pain for up to 10 days. Do not crush, chew, or split. 30 tablet 4 025 amoxicillin (Amoxil) 500 MG capsuleIndicatio ns:Dental abscess Take 1 capsule (500 mg) by mouth every 8 (eight) hours for 7 days. 21 capsule 4 025 Active Problems Problem Noted Date Diagnosed Date Chronic periodontitis 04/02/2024 Dental abscess 03/05/2024 NASIR (generalized anxiety disorder) 06/26/2023 Major depression, recurrent, chronic 05/13/2023 Assessment & Plan (06/26/2023 2:33 PM EDT): PROGRESS NOTE: ID: Georgina is a 62 y.o. straight-identified cis-female (pronouns she/her/hers) with previous documented hx of Depression. services including OP Psychotherapy psychopharmacology who presents for Anxiety and Depression. She lives with her daughter and three grand children. During IBH Consult Georgina presenting with depressed mood, loss of interests/pleasure , changes in sleep difficulty falling asleep and difficulty staying asleep , change in appetite or weight reduce appetite, psychomotor retardation, trouble concentrating, fatigue/loss of energy, worthlessness and excessive worry/anxiety, difficulty controlling worry, easily fatigued, difficulty concentrating/Mind going blank , irritability, muscle tension, and sleep disturbance difficulty falling asleep and difficulty staying asleep ; for a period of 18+ mo, for all symptoms in the context of health issues, feeling like a burden to daughter, struggling with ADLS and IADLS. PLAN: New/Additional Services needed Off-site services for Behavioral Health Integration Plan External OP therapy referral and OP psychiatry Referral Patient Self Plan Patient to utilize skills provided in intervention , [facility] needed, Comply with medication , Patient to engage in OP therapy , and Patient to reach out to [facility] as needed Assessment & Plan (05/13/2023 3:45 PM EST): Start Prozac 10mg Referral to N Hypertensive urgency 03/07/2023 Assessment & Plan (05/13/2023 3:40 PM EST): Need to start blood pressure medication today She will go and pick everything up after out appointment today Assessment & Plan (03/07/2023 1:58 PM EST): Given clonidine with reduction in blood pressure, however pt with what appears to be retinal hemorrhages (vision changes x 5 days?) No eye provider on site today so pt referred urgently to ER--> expect called No signs of ischemia on EKG Gastroesophageal reflux disease 04/22/2022 Nonalcoholic fatty liver disease 06/23/2020 Uncontrolled mild persistent asthma 01/26/2020 Assessment & Plan (07/26/2022 6:41 AM EDT): recommend Flovent and NEETA use Vitamin D insufficiency 11/10/2014 Depressive disorder 07/27/2014 Assessment & Plan (09/24/2023 12:56 PM EDT): Continue Prozac 10 mg daily Reviewed options for worsening SI Follow-up with counselor this afternoon Assessment & Plan (12/02/2022 1:13 PM EDT): Manifesting as irritability Recommend trying to get out of bed Assessment & Plan (07/26/2022 6:43 AM EDT): Declines therapy referral Hopefully phetermine will help with some activation Needs to get out of bed during the day and sleep at night Hearing loss 07/27/2014 Hyperlipidemia 07/27/2014 Tooth disorder 07/27/2014 Morbid obesity 01/04/2013 Assessment & Plan (12/02/2022 1:14 PM EDT): Qysmia denied Start Topimax 25mg daily, will increase to 50mg after 1-3 months Assessment & Plan (07/26/2022 6:42 AM EDT): Trial phenetermine/topimax Impaired fasting glucose 06/03/2012 Essential hypertension 03/10/1959 Assessment & Plan (09/24/2023 12:56 PM EDT): Maintenance: Not taking Amlodipine 10mg and Losartan/HCTZ in vials, does not want to go back on medbox NOT at goal <140/90, improved on recheck BMP: DUE Lipid Panel: DUE ASCVD Risk: DUE EKG: NSR, HR 67 today - Aerobic exercise to reduce BP. Initial goal of 30 min walk 3-5x/week. Increase as tolerated. - low-sodium diet (goal: <2g/day) and heart healthy diet such as DASH to reduce BP and prevent ASCVD. - Home BP monitoring 1-2 x day with goal of <140/90. - Seek immediate medical attention for chest pain, palpitations, SOB, syncope, or sudden changes in mental status. - Do not change or discontinue current prescriptions without first consulting health care provider Assessment & Plan (12/02/2022 1:15 PM EDT): Maintenance: Not taking Amlodipine 10mg and Losartan/HCTZ in vials, does not want to go back on medbox Says she will restart in the mornings BMP: DUE Lipid Panel: DUE ASCVD Risk: Calculate pending updated labs EKG: NSR, HR 67 today - Aerobic exercise to reduce BP. Initial goal of 30 min walk 3-5x/week. Increase as tolerated. - low-sodium diet (goal: <2g/day) and heart healthy diet such as DASH to reduce BP and prevent ASCVD. - Home BP monitoring 1-2 x day with goal of <140/90. - Seek immediate medical attention for chest pain, palpitations, SOB, syncope, or sudden changes in mental status. - Do not change or discontinue current prescriptions without first consulting health care provider Assessment & Plan (07/26/2022 6:42 AM EDT): Called [facility] line to stop medboxes as pt does not take the medications when they are packed up Can start Amlodipine 10mg and Losartan/HCTZ in vials Encounters Date Type Department Care Team Description 04/08/2024 10:30 AM EST Office Visit [facility] [address] [place] [phone] Lashell Hatch MD Depressive disorder (Primary Dx); Uncontrolled mild persistent asthma; Essential hypertension; Nonalcoholic fatty liver disease; Major depression, recurrent, chronic (CMS/HCC); Urinary incontinence, unspecified type 04/08/2024 Travel 04/02/2024 2:30 PM EST Office Visit [facility] [address] [place] [address] Juwan Nicole DDS Chronic periodontitis (Primary Dx) 03/30/2024 Patient Outreach [address] [phone] Lashell Hatch MD Pre-visit Planning ((Unable to reach for PVP screening, LVM)) 03/17/[address] [facility] [address] [place] [phone] Rowan Franklin MA RS APPT 03/05/2024 2:30 PM EST Office Visit [facility] [address] [place] [phone] Juwan Nicole DDS Dental abscess (Primary Dx) 03/05/[address] [phone] Lashell Hatch MD Benign hypertension 03/05/[address] [phone] Lashell Hatch MD Nurse Triage from Last 3 Months Immunizations Name Administration Dates Next Due Hep B, adult 11/10/2014, 1,11/09/1999,1999 Influenza Injectable Quadriv alant Preservative Free IIV4 MDCK 02/01/2020 Influenza injectable quadriv alent IIV4 with preservative 04/12/2015 Influenza injectable quadriv alent preservative free 03/05/2018,03/26/2016 Influenza, IIV3, injectable 01/03/2014, 1 Influenza, Split (incl. pan fied surface antigen) 01/04/2013 TD (adult), 2 Lf tetanus tox oid, preservative free, adsorbed 07/18/1999 Td (adult), 5 Lf tetanus tox oid, preservative free, adsorbed 01/10/2016 Tdap 06/02/2012 Zoster, Recombinant 02/01/2020,03/17/2019 Family History Medical History Relation Name Comments Brain Aneurysm Father Coronary artery disease Mother Diabetes Mother Hypertension Mother Relation Name Status Comments Father Mother Social History Tobacco Use Types Packs/Day Years [...] Orientation Straight 01/07/2022 10 :15 AM EDT Last Filed Vital Signs Vital Sign Reading Time Taken Comments Blood Pressure 160/90 04/08/2024 10:37 AM EST Pulse 90 04/08/2024 10:37 AM EST Temperature 36.1 ??C (97 ??F) 04/08/2024 10:37 AM EST Respiratory Rate 20 04/08/2024 10:37 AM EST Oxygen Saturation 96% 09/24/2023 10:26 AM EDT Inhaled Oxygen Concentration - - Weight 110 kg (241 lb 12.8 oz) 04/08/2024 10:37 AM EST Height 160 cm (5' 3 ) 04/08/2024 10:37 AM EST Body Mass Index 42.83 04/08/2024 10:37 AM EST Plan of Treatment Health Maintenance Due Date Last Done Comments CT Colonography 1960 Colonoscopy 1960 Colorectal Cancer Screening 1960 Dental Prophylaxis 1960 FIT DNA/Cologuard 1960 FIT 1960 FOBT 1960 HIV Screening 1960 Sigmoidoscopy 1960 Hepatitis C Screening 1978 Hepatitis A Vaccines (1 of 2 - Risk 2-dose series) 10/24/1979 Pneumococcal Vaccine: 50+ Years (1 of 2 - PCV) 10/24/1979 Dental Oral Exam 03/26/2015 09/22/2014 Dental X-Ray: Bitewings 09/24/2015 09/22/2014 RSV Patients and Patients Aged 60 years or older (1 - Risk 60-74 years 1-dose series) 2020 Mammogram 07/13/2022 07/13/2020, 05/0 08/2020, 06/09/2018, Additional history exists Pap Smear 06/24/2023 06/23/2020 COVID-19 Vaccine ( season) 2023 09/26/2021, 06/09/2020, 05/12/2020 Influenza Vaccine (#1) 2023 , 03/05/2018, 03/26/2016, Additional history exists SDOH Screening 08/07/2024 08/08/2023 Depression Monitoring (PHQ-9) 10/06/2024 04/08/2024, 04/08/2024 Alcohol/Substance Use Screening 04/08/2025 04/08/2024 Depression Screening 04/08/2025 04/08/2024, 04/08/19 Tobacco Screening 04/08/2025 04/08/2024 Cervical Cancer Screening 06/23/2025 HPV/Cotest 06/23/2025 06/23/2020 DTaP/Tdap/Td Vaccines (3 - Td or Tdap) 01/09/2026 01/10/2016, 06/02/2012, 07/18/1999 Dental X-Ray: Full Mouth 03/06/2027 03/05/2024, 09/07 Lipid Panel 04/08/2029 04/08/2024, 05/05/2020 Hepatitis B Vaccines Completed 11/10/2014, 01/15/2001, 11/09/1999, Additional history exists Zoster Vaccines Completed 02/01/2020, 03/17/2019 HIB Vaccines Aged Out No longer eligi ble based on patient's age to complete this topic HPV Vaccines Aged Out No longer eligi ble based on patient's age to complete this topic IPV Vaccines Aged Out No longer eligi ble based on patient's age to complete this topic Meningococcal Vaccine Aged Out No kalyani americo eligible based on patient's age to complete this topic RSV under 20 months Aged Out No longe r eligible based on patient's age to complete this topic Rotavirus Vaccines Aged Out No longer eligible based on patient's age to complete this topic Procedures Procedure Name Priority Date/Time Associated Diagnosis Comments URINALYSIS, COMPLETE, WITH REFLEX TO CULTURE Routine 04/08/2024 11:10 AM EST Urinary incontinence, unspecified type CBC WITH AUTO DIFFERENTIAL Routine 04/08/2024 11:10 AM EST Major depression, recurrent, chronic (CMS/HCC) LIPID PANEL, STANDARD Routine 04/08/2024 11:10 AM EST Essential hypertension COMPREHENSIVE METABOLIC PANEL Routine 04/08/2024 11:10 AM EST Essential hypertension HEMOGLOBIN A1C Routine 04/08/2024 11:10 AM EST Essential hypertension TSH W/REFLEX TO FT4 Routine 04/08/2024 1 1:10 AM EST Essential hypertension NO CHARGE VISIT Routine 04/02/2024 2:30 PM EST ADJUNCTIVE GENERAL SERVICES - PROFESSIONAL VISITS - CASE PRESENTATION, SUBSEQUENT TO DETAILED AND EXTENSIVE TREATMENT PLANNING Routine 03/05/2024 2:30 PM EST PANORAMIC RADIOGRAPHIC IMAGE Routine 03/05/2024 2:30 PM EST 15 UL ADJUNCTIVE GENERAL SERVICES - UNCLASSIFIED TREATMENT - PALLIATIVE TREATMENT OF DENTAL PAIN - PER VISIT Routine 03/05/2024 2:30 PM EST MAMMOGRAM GENERIC Routine 07/13/2020 11: 30 AM EDT HPV MRNA E6/E7 REFLEX TO HPV 16, 18/45 Routine 06/23/2020 10:36 AM EDT THINPREP PAP Routine 06/23/2020 10:36 AM EDT DIAGNOSTIC - DIAGNOSTIC IMAGING - INTRAORAL - COMPREHENSIVE SERIES OF RADIOGRAPHIC IMAGES Routine 09/22/2014 12:00 AM EDT COMPREHENSIVE ORAL EVALUATION - NEW OR ESTABLISHED PATIENT Routine 09/22/2014 12:00 AM EDT from Last 3 Months or Most Recently Relevant to Health Maintenance Results * (ABNORMAL) Urinalysis, Complete, with Reflex to Culture (04/08/2024 11:10 AM EST) Color Urine Dark Yellow [facility] Appearance Urine Cloudy [facility] PH 6.0 5.0 - 9.0 [facility] Glucose Urine UA Negative Negative mg/dL [facility] Urine Blood Negative Negative [facility] Specific [place] - Urine 1.025 1.005 - 1.025 [facility] Urine Protein Trace Neg-Trace mg/dL [facility] Urine Ketones Trace Negative mg/dL [facility] Nitrite Urine Negative Negative [facility] Leukocyte Esterase Urine Trace(A) Negative [facility] RBC Urine 0-2 0 - 2 /HPF [facility] Urine WBC 0-5 0 - 5 /HPF [facility] Urine Squamous Epithelial Cell 6-10 0 - 2 /HPF [facility] Urine Bacteria 1+ None Seen [facility] Hyaline Casts, Urine 0-2 0 - 2 /LPF [facility] Urine 04/08/2024 11:1 0 AM EST 04/08/2024 1:05 PM EST Narrative [facility] - 04/08/2024 1:29 PM EST Urine, Clean Catch Lashell Hatch MD LAB URINE ORDERABLES Final Res ult Performing Organization Address [facility] Co de Phone Number [facility] [address] [place] [phone] * TSH W/Reflex to FT4 (04/08/2024 11:10 AM EST) TSH reflex Free T4 3.88 0.32 - 4.0 uIU/mL [facility] Blood Venous blood specimen / Unknown 04/08/2024 11:10 AM EST 04/08/2024 12:57 PM EST Lashell Hatch MD LAB BLOOD ORDERABLES Final Res ult Performing Organization Address [facility] Co de Phone Number [facility] [address] [place] [phone] * (ABNORMAL) CBC auto differential (04/08/2024 11:10 AM EST) White Blood Count 4.8 4.8 - 10.8 X10*3/uL [facility] Red Blood Count 4.79 4.20 - 5.50 X10*6/uL [facility] Hemoglobin 14.7 12.0 - 16.0 g/dl [facility] Hematocrit 43.6 37.0 - 47.0 % [facility] Mean Corpuscular Volume 91.0 80.0 - 98.0 fL [facility] Mean Corpuscular Hemoglobin 30.7 27.0 - 33.0 pg [facility] Mean Corpuscular HGB Conc 33.7 31.0 - 35.0 g/dl [facility] Red Cell Distribution Width 12.5 11.0 - 16.0 % [facility] Platelet Count 249 160 - 400 X10*3/uL [facility] Mean Platelet Volume 10.6 9.4 - 12.3 fL [facility] Neutrophils Percent Auto 49.9 45 - 73 % [facility] Imm Gran Pct Auto 0.4 0.0 - 0.4 % [facility] Lymphocytes Percent Auto 34.0 20 - 40 % [facility] Monocytes Percent Auto 11.1(H) 2 - 11 % [facility] Eosinophils Percent Auto 3.8 0 - 4 % [facility] Basophils Percent Auto 0.8 0 - 2 % [facility] NRBC Pct Auto 0.0 0.0 - 0.2 /100WBC [facility] Neutrophils Absolute Auto 2.4 2.0 - 8.3 x10*3/uL [facility] Imm Gran Abs Auto 0.02 0.00 - 0.03 X10*3/uL [facility] Lymphocytes Absolute Auto 1.6 1.2 - 4.9 X10*3/uL [facility] Monocytes Absolute Auto 0.5 0.1 - 1.2 X10*3/uL [facility] Eosinophils Absolute Auto 0.2 0.0 - 0.4 X10*3/uL [facility] Basophils Absolute Auto 0.0 0.0 - 0.2 X10*3/uL [facility] NRBC Abs Auto 0.000 0.0 - 0.012 X10*3/uL [facility] Blood Venous blood specimen / Unknown 04/08/2024 11:10 AM EST 04/08/2024 12:57 PM EST us Lashell Hatch MD LAB BLOOD ORDERABLES Final Res ult [facility] [address] [place] [phone] * (ABNORMAL) Hemoglobin A1c (04/08/2024 11:10 AM EST) Hemoglobin A1c 7.4(H) <6.0 % [facility] Comment:Hemoglobin A1C Refer ence Range Adults: 4.8 - 6.0 % Non diabetic: < 6.0 % Goal: < 7.0 %Additional Action Suggested: > 8.0 %Note: Hemoglobin A1c results are invalid for patients with abnormal amounts of HbF. Blood transfusions may impact the HbA1c concentration in the patient sample. Estimated Average Glucose 166 mg/dL [facility] Comment:eAG = Estimated ave rage glucose which is %A1C expressed asaverage glucose, using the formula of the U4P-FurruqvSbxiouc Glucose study (ADAG), Diabetes Care, Vol.31,#8,Oct. 2007 Blood Venous blood specimen / Unknown 04/08/2024 11:10 AM EST 04/08/2024 12:57 PM EST us Lashell Hatch MD LAB BLOOD ORDERABLES Final Res ult [facility] [address] [place] [address] [phone] * (ABNORMAL) Lipid Panel, Standard (04/08/2024 11:10 AM EST) Triglycerides 113 <150 mg/dL [facility] Comment:Desirable Triglyceri de: less than 150 mg/dLBorderline High Triglyceride 150-199 mg/dLHigh Triglyceride: 200-499 mg/dLVery High Triglyceride: greater than or equal to 5OO mg/dL Cholesterol 216(H) <200 mg/dL [facility] Comment:Desirable Cholestero l: less than 200 mg/dLBorderline High Cholesterol: 200-239 mg/dLHigh Cholesterol: greater than 239 mg/dL LDL Cholesterol Calculated 136(H) <100 mg/dL [facility] Comment:Desirable LDL: less than 100 mg/dLNear Optimal/Above Optimal LDL: 110- 129 mg/dLBorderline High LDL: 130-159 mg/dLHigh LDL: 160-189 mg/dLVery High LDL: greater than or equal to 190 mg/dL HDL Cholesterol 58 >40 mg/dL [facility] Comment:Desirable HDL: great er than 40 mg/dL Note: This HDL assay may give artificially low results in patients with liver disease. Blood Venous blood specimen / Unknown 04/08/2024 11:10 AM EST 04/08/2024 12:57 PM EST us Lashell Hatch MD LAB BLOOD ORDERABLES Final Res ult [facility] [address] [place] [phone] * (ABNORMAL) Comprehensive Metabolic Panel (04/08/2024 11:10 AM EST) Sodium 139 135 - 145 mmol/L [facility] Potassium 3.8 3.3 - 5.1 mmol/L [facility] Chloride 106 96 - 108 mmol/L [facility] Carbon Dioxide 27 22 - 29 mmol/L [facility] Anion Gap 10(L) 12 - 20 [facility] Urea Nitrogen (BUN) 12 9 - 16 mg/dL [facility] Creatinine, Serum 0.58 0.5 - 1.4 mg/dL [facility] Estimated Glomerular Filt Rate >60 [facility] Comment:Chronic Kidney Disea se: Estimated GFR < 60 mL/min/[id number] Kidney Disease: Estimated GFR < 15 mL/min/1.73m2 Glucose 150(H) 60 - 115 mg/dL [facility] Calcium 8.8 8.4 - 10.2 mg/dL [facility] Bilirubin, Total 0.7 0.0 - 1.0 mg/dL [facility] Aspartate Amino Transferase 56(H) 5 - 31 U/L [facility] Alanine Aminotransferase 57(H) 0 - 31 U/L [facility] Total Protein 8.0 6.5 - 8.0 g/dL [facility] Albumin Level 3.6 3.5 - 5.0 g/dL [facility] Alkaline Phosphatase 154(H) 39 - 117 U/L [facility] Blood Venous blood specimen / Unknown 04/08/2024 11:10 AM EST 04/08/2024 12:57 PM EST Lashell Hatch MD LAB BLOOD ORDERABLES Final Res ult [facility] [address] [place] [phone] * Mammography Report 1 (07/13/2020 11:30 AM EDT) Anatomical Region Laterality Modality Breast Bilateral Mammography 07/13/2020 11:3 0 AM EDT Narrative 07/14/2021 3:54 AM EDT Refer to the Notes tab for result details [facility] Procedure: Mammography Report 1 Procedure Note ProviderGurpreet MD - 06/01/2022 Refer to the Notes tab for result details [facility] Procedure: Mammography Report 1 Lashell Hatch MD IMG BI PROCEDURES Final Result * THINPREP PAP (06/23/2020 10:36 AM EDT) Clinical Information: None given [facility] COMMENT SEE COMMENT [facility] Comment: EXPLANATORY NOTE: ? The Pap is a screening test for cervical cancer. It is ?? not a diagnostic test and is subject to false negative ?? and false positive results. It is most reliable when a ?? satisfactory sample, regularly obtained, is submitted ?? with relevant clinical findings and history, and when ?? the Pap result is evaluated along with historic and ?? current clinical information. ?? Portrait Painter : SEE COMMENT [facility] Comment: DCR, CT(ASCP) CT screening location: [address] ??[phone] Interpretation/R esult: Negative for intraepithelial lesion or malignancy. [facility] LMP: NONE [facility]IV[facility] Prev. BX: NONE [facility]IV[facility] Prev. PAP: NONE [facility]IVEN [facility] SOURCE: None given [facility] Statement Of Adequacy: SEE COMMENT [facility] Comment: Satisfactory for evaluation. Endocervical/transformation zone component absent. 06/23/2020 10:3 6 AM EDT Lashell Hatch MD LAB PATHOLOGY ORDERABLES Final Result Performing Organization Address [facility] Co de Phone Number [facility] [address] * HPV mRNA E6/E7 REFLEX TO HPV 16, 18/45 (06/23/2020 10:36 AM EDT) HPV nRNA E6/E7 Not Detected Not Detected [facility] Comment: Methodology: Safety Associate-Mediated Amplification This assay detects E6/E7 viral messenger RNA (mRNA) from 14 high-risk HPV types (16,18,31,33,35,39,45,51,52,56,58,59,66,68). ? The analytical performance characteristics of this assay have been determined by [employer]. The modifications have not been cleared or approved by the FDA. This assay has been validated pursuant to the CLIA regulations and is used for clinical purposes. ?? For additional information, please refer to http://education.[employer].Stemnion/faq/JDW962r6 (This link if provided for information/ educational purposes only.) 06/23/2020 10:3 6 AM EDT Lashell Hatch MD LAB CYTOLOGY ORDERABLES Final Result Performing Organization Address [facility] de Phone Number [facility] [address] from Last 3 Months or Most Recently Relevant to Health Maintenance Insurance [facility] AD[place] Care Teams Television Servicer Relationship Specialty Start Date End Date Lashell Hatch MD [address] [place] [address] PCP - General Family Medicine 11/08/19
[2024-04-09 04:06] LABS: HIV AB/AG Nonreactive (Nonreactive); HIV Num 1 0.05 S/CO (0.00-0.99); ~HepC Num1 0.08 S/CO (0.00-0.79); ~Hepatitis C Antibody Nonreactive (Nonreactive)
== END 2024-04-08 11:05 | disposition home or self-care (01) ==
LOC: HO.HHCL 11:04
PROVIDERS: Visit Provider General Practice
DX: Z11.4 Encounter for screening for human immunodeficiency virus [HIV] (principal); K76.0 Fatty (change of) liver, not elsewhere classified; F33.9 Major depressive disorder, recurrent, unspecified; R32 Unspecified urinary incontinence; I10 Essential (primary) hypertension
CPT/HCPCS: 36415; 80053; 80061; 81001; 83036; 84443; 85025; 86803; 87389

== ENCOUNTER 2024-05-13 13:14 | Outpatient (REF) | payer MEDICAID, SELFPAY ==
--- NOTE | 2024-05-13 14:13 | MHC.AU.MED ---
Medical Clearance for Hearing Instrumentation Date: 05/13/24 Patient Name: Georgina Foley Date of : 1960 Primary Care Provider: Lashell Hatch MD We have seen your patient on 05/13/24 and have determined that they are a candidate for amplification (See accompanying report). Specifically, they would benefit from: Hearing aid use in both ears There is a statute that addresses Medical Evaluation Requirements prior to fitting a patient with a hearing aid. According to [place] statute 265 CMR:6.03(1), (a) General. Except as provided in 265 CMR 6.03(1)(b), a alfalfa dehydrator operator shall not sell a hearing aid unless the prospective user has presented to the alfalfa dehydrator operator a written statement signed by a licensed physician that states that the patient's hearing loss has been medically evaluated and the patient may be considered a candidate for a hearing aid. The medical evaluation must have taken place within the preceding six months. Please note: Due to the [place] Statute referenced above, we cannot accept a signature other than that of a licensed physician. DAY PORTER and PA signatures cannot be accepted. I am in agreement with the above recommendation. There is no medical contraindication for hearing instrumentation. Physician Signature Date Physician Name (Printed)
--- NOTE | 2024-05-13 14:20 | MHC.AU.HA1 ---
Hearing Aid Evaluation Date of Visit: 05/13/24 Historical Information: Description of Hearing: Mild sloping to severe primarily sensorineural hearing loss, bilaterally; Left ear slightly worse than right ear Current personal amplification information: Phonak Audeo B50-10 hearing aids fit in Oct 2016 Summary: Previous SCHNEIDER user, initially fit in 2017. Lost one SCHNEIDER >1 year ago and has not worn the other one since; did not bring to this appointment. Ready to pursue new HAs due to increasing hearing difficulties. 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 Will start with dome, may add custom ear mold, if needed. Hearing Aid Prescription: Based on the individual?s shared listening needs, communication environments, dexterity, desire for connectivity, and personal preferences, the following prescription for amplification has been made: Right ear: Make, Model, Color: Phonak Audeo I50-R Color: Black Battery Size: Rechargeable Band Tumbler/Slim Tube: 1M Type of Earmold/Dome/CShell/SlimTip: Medium vented dome Left ear: Left ear prescription to be same as Right Hearing Aid above: Make, Model, Color: Phonak Audeo I50-R Color: Black Battery Size: Rechargeable Band Tumbler/Slim Tube: 1M Type of Earmold/Dome/CShell/SlimTip: Medium vented dome Accessories/Assistive Technology: Case Picker Plan of Care: Patient wishes to purchase hearing aids as prescribed Action Taken/Action Needed: Medical Clearance to be requested from PCP/ENT. Hearing Instrument Fitting to be scheduled when materials arrive Primary Diagnosis: H90.3 Bilateral Sensorineural Hearing Loss Signature: Provider: Elmo Nevarez, [facility]
--- OUTSIDE RECORDS SUMMARY | 2024-05-13 16:05 | XMS_ITS | Encounter Summary ---
Author Organization [employer] Address [address] [place] [address] Care Team Providers Care Adjunct English Instructor Name Role Phone Lashell Hatch MD Primary Care Provider [phone] Reason for Visit * Reason Onset Date Comments Durable Medical Equipment 04/29/2024 Encounter Details Date Type Department Care Team ([facility] st Contact Info) Description 04/29/2024 Telephone [facility] [address] [place] [address] Lashell Hatch MD [address] [place] [address] Durable Medical Equipment Social History Tobacco Use Types Packs/Day Years [...] encounter Miscellaneous Notes * Telephone Encounter - Mary Ann Franklin MA - 04/29/2024 11:29 AM EST DME for liners from [employer] received and is being processed. documented in this encounter Plan of Treatment Upcoming Encounters Date Type Department Care Team (Late st Contact Info) Description 06/15/2024 10:15 AM EDT Office Visit [facility] [address] [place] [address] Lashell Hatch MD [address] [place] [address] documented as of this encounter Visit Diagnoses Not on filedocumented in this encounter Additional Health Concerns Assessment Noted Time PHQ-9 Depression Total Score: 25 025 10:39 AM EST documented as of this encounter Care Teams Adjunct English Instructor Relationship Specialty Start Date End Date Lashell Hatch MD [address] [place] [address] PCP - General Family Medicine 11/08/19 documented as of this encounter
--- OUTSIDE RECORDS SUMMARY | 2024-05-13 16:05 | XMS_ITS | Encounter Summary ---
Author Organization [employer] Address [address] [place] [address] Care Team Providers Care Rim Technician Name Role Phone Lashell Hatch MD Primary Care Provider [phone] Reason for Visit * Reason Onset Date Comments Results 04/16/2024 Encounter Details Date Type Department Care Team ([facility] st Contact Info) Description 04/16/2024 Telephone [facility] [address] [place] [address] Mary Fernández, RN Results Social History Tobacco Use Types Packs/Day Years [...] Miscellaneous Notes * Telephone Encounter - Mary Fernández RN - 04/16/2024 9:31 AM EST Telephone call returned to patient in regards to below message. Patient stating she never had metformin and never knew she needed medications. Patient stating she will vegetable picker medications and start to take. Patient verbalized understanding and denied having any further questions or concerns at thistime. Patient to follow up as needed. * Telephone Encounter - Mary Fernández RN - 04/16/2024 9:31 AM EST ----- Message from Lashell Hatch MD sent at 04/15/2024 8:09 PM EST ----- Please let patient know that her labs have moved from borderline high sugars to diabetes. She needsto start taking Metformin, which I prescribed for her, and if this is not sufficient at controllingher sugars, we will add injectable medication like Ozempic or Trulicity. documented in this encounter Plan of Treatment Upcoming Encounters Date Type Department Care Team (Late st Contact Info) Description 06/15/2024 10:15 AM EDT Office Visit [facility] [address] [place] [address] Lashell Hatch MD [address] [place] [address] documented as of this encounter Visit Diagnoses Not on filedocumented in this encounter Additional Health Concerns Assessment Noted Time PHQ-9 Depression Total Score: 25 025 10:39 AM EST documented as of this encounter Care Teams Rim Technician Relationship Specialty Start Date End Date Lashell Hatch MD [address] [place] [address] PCP - General Family Medicine 11/08/19 documented as of this encounter
--- OUTSIDE RECORDS SUMMARY | 2024-05-13 16:05 | XMS_ITS | Encounter Summary ---
Author Organization [employer] [facility] Address [address] [place] [address] Care Team Providers Care Steam Table Attendant Name Role Phone Lashell Hatch MD Primary Care Provider [phone] Encounter Details Date Type Department Care Team (Late st Contact Info) Description 03/06/2022 Telephone [facility] [address] [place] [address] Lashell Hatch MD [address] [place] [address] Social History Tobacco Use Types Packs/Day Years Used Date Smoking Tobacco: Never Assessed Comments Unknown Sex and Gender Information Value Date Recorded Sex Assigned at Female 01/07/2022 10:15 AM EDT Legal Sex Female 10:15 AM EDT Gender Identity Female 01/07/2022 10:15 AM EDT Sexual Orientation Straight 01/07/2022 10 :15 AM EDT documented as of this encounter Plan of Treatment Upcoming Encounters Date Type Department Care Team (Late st Contact Info) Description 06/15/2024 10:15 AM EDT Office Visit [facility] [address] [place] [address] Lashell Hatch MD [address] [place] [address] documented as of this encounter Visit Diagnoses Not on filedocumented in this encounter Care Teams Steam Table Attendant Relationship Specialty Start Date End Date Lashell Hatch MD [address] [place] [address] PCP - General Family Medicine 11/08/19 documented as of this encounter
--- OUTSIDE RECORDS SUMMARY | 2024-05-13 16:05 | XMS_ITS | Encounter Summary ---
Author Organization [employer] Address [address] [place] [address] Care Team Providers Care Injection Molding Technician Name Role Phone Lashell Hatch MD Primary Care Provider [phone] Reason for Visit * Reason Onset Date Comments [employer] 05/13/2024 [employer] Bath seat with back Encounter Details Date Type Department Care Team ([facility] st Contact Info) Description 05/13/2024 Telephone [facility] [address] [place], [place] [phone] Lashell Hatch MD [address] [place], [place] [phone] [employer] ([employer] Bath seat with back) Social History Tobacco Use Types Packs/Day Years [...] encounter Miscellaneous Notes * Telephone Encounter - Jean Thapa MA - 05/13/2024 11:04 AM EST Received medical necessity form from [employer] for [employer] Bath seat. Form has been filled out and placed on PCP desk for their signature. documented in this encounter Plan of Treatment Upcoming Encounters Date Type Department Care Team (Late st Contact Info) Description 06/15/2024 10:15 AM EDT Office Visit [facility] [address] [place] [address] Lashell Hatch MD [address] [place] [address] documented as of this encounter Visit Diagnoses Not on filedocumented in this encounter Additional Health Concerns Assessment Noted Time PHQ-9 Depression Total Score: 25 025 10:39 AM EST documented as of this encounter Care Teams Injection Molding Technician Relationship Specialty Start Date End Date Lashell Hatch MD [address] [place] [address] PCP - General Family Medicine 11/08/19 documented as of this encounter
--- OUTSIDE RECORDS SUMMARY | 2024-05-13 16:05 | XMS_ITS | Encounter Summary ---
Author Organization [employer] Address [address] [place] [address] Care Team Providers Care Honing Machine Operator Production Name Role Phone Lashell Hatch MD Primary Care Provider [phone] Reason for Visit * Reason Onset Date Comments Durable Medical Equipment 04/29/2024 Encounter Details Date Type Department Care Team ([facility] st Contact Info) Description 04/29/2024 Telephone [facility] [address] [place] [address] Lashell Hatch MD [address] [place] [address] Durable Medical Equipment Social History Tobacco Use [...] - Mary Ann Franklin MA - 04/29/2024 11:34 AM EST DME for bath seat with back from [employer] received and is being processed. documented in this encounter Plan of Treatment Upcoming Encounters Date Type Department Care Team (Late st Contact Info) Description 06/15/2024 10:15 AM EDT Office Visit [facility] [address] [place] [address] Lashell Hatch MD [address] [place] [address] documented as of this encounter Visit Diagnoses Not on filedocumented in this encounter Additional Health Concerns Assessment Noted Time PHQ-9 Depression Total Score: 25 025 10:39 AM EST documented as of this encounter Care Teams Honing Machine Operator Production Relationship Specialty Start Date End Date Lashell Hatch MD [address] [place] [address] PCP - General Family Medicine 11/08/19 documented as of this encounter
--- OUTSIDE RECORDS SUMMARY | 2024-05-13 16:05 | XMS_ITS | Clinical Summary ---
Author Organization [employer] Address [address] [facility] 7t [place] [address] Care Team Providers Care Edge Gluer Name Role Phone Lashell Hatch MD Primary Care Provider [phone] Allergies Active Allergy Reactions Criticality Noted Date Comments Jabari Inhibitors Cough 07/27/2014 Lisinopril Cough 03/05/2024 Medications * This document contains information received from the source organization and may not represent a complete record from that organization. topiramate (Topamax) 25 MG tabletIndications :Morbid obesity (CMS/HCC) TAKE 1 TABLET BY MOUTH EVERY MORNING 90 tablet 1 4 Active Ventolin HFA 108 (90 Base) MCG/ACT inhaler INHALE 2 PUFFS BY MOUTH EVERY 4 HOURS 18 g 11 4 Active fluticasone furoate (Arnuity Ellipta) 100 MCG/ACT inhaler Inhale 1 puff Once per day. 1 each 11 4 09/24/19 25 Active chlorhexidine (Peridex) 0.12 % solutionIndicatio ns:Dental abscess Swish 15 mL morning and night for 1 minute. Spit, do not swallow. Do not eat or drink for 30 minutes following use. 473 mL 4 Active losartan-hydroCHL OROthiazide (Hyzaar) 100-25 MG tabletIndications :Benign hypertension TAKE 1 TABLET BY MOUTH EVERY MORNING 90 tablet 3 4 Active amLODIPine (Norvasc) 10 MG tabletIndications :Benign hypertension TAKE 1 TABLET BY MOUTH EVERY MORNING 90 tablet 3 4 Active FLUoxetine (PROzac) 20 MG capsuleIndication s:Depressive disorder Take 1 capsule (20 mg) by mouth Once per day. 90 capsule 3 5 04/03/19 26 Active nabumetone (Relafen) 500 MG tablet Take 1 tablet (500 mg) by mouth 2 times daily. 60 tablet 11 5 04/10/19 26 Active metFORMIN (Glucophage) 500 MG tabletIndications :Type 2 diabetes mellitus without complication, without long-term current use of insulin (CMS/HCC) Take 1 tablet (500 mg) by mouth with breakfast and with evening meal. 60 tablet 11 5 04/10/19 26 Active Active Problems Problem Noted Date Diagnosed Date Osteoarthritis of right knee 04/30/2024 Urinary incontinence 04/10/2024 Encounter for screening mamm ogram for malignant neoplasm of breast 04/10/2024 Class 3 severe obesity with serious comorbidity and body mass index (BMI) of 40.0 to 44.9 in adult 04/10/2024 Chronic periodontitis 04/02/2024 Dental abscess 03/05/2024 NASIR [...] intervention , Patient to reach out to [facility] team as needed, Comply with medication , [...] 06/03/2012 Essential hypertension 03/10/1959 Assessment & Plan (04/10/2024 10:57 AM EST): Maintenance: Not taking Amlodipine 10mg and Losartan/HCTZ in vials, does not want to go back on medbox. We will continue to work on compliance together. NOT at goal <140/90, improved on recheck BMP: today Lipid Panel: today ASCVD Risk: The 10-year ASCVD risk score (Adenike MOTA, et al., 2019) is: 9.5% Values used to calculate the score: Age: 63 years Sex: Female Is Non- : No Diabetic: No Tobacco smoker: No Systolic Blood Pressure: 160 mmHg Is BP treated: Yes HDL Cholesterol: 58 mg/dL Total Cholesterol: 216 mg/dL EKG: NSR, HR 67 today - Aerobic [...] consulting health care provider Assessment & Plan (09/24/2023 12:56 PM EDT): [...] Encounters Date Type Department Care Team Description 05/13/2024 Telephone [facility] [address] [place] [phone] Lashell Hatch MD [employer] ([facility] Bath seat with back) 04/29/2024 Telephone [facility] [address] [place] [address] Lashell Hatch MD Durable Medical Equipment 04/29/2024 Telephone [facility] [address] [place] [address] Lashell Hatch MD Durable Medical Equipment 04/16/[address] [address] Mary Fernández RN Results 04/08/2024 10:30 AM EST Office Visit [address] [phone] Lashell Hatch MD Essential hypertension (Primary Dx); Uncontrolled mild persistent asthma; Depressive disorder; Nonalcoholic fatty liver disease; Major depression, recurrent, chronic (CMS/HCC); Urinary incontinence, unspecified type; Mixed conductive and sensorineural hearing loss of both ears; Encounter for screening mammogram for malignant neoplasm of breast; Screening for colon cancer; Dietary counseling; Exercise counseling; Class 3 severe obesity with serious comorbidity and body mass index (BMI) of 40.0 to 44.9 in adult, unspecified obesity type (CMS/FORMER[facility]); Type 2 diabetes mellitus without complication, without long-term current use of insulin (CMS/HCC) 04/08/2024 Travel 04/02/2024 2:30 PM EST Office Visit [facility] [address] [place] [address] Juwan Nicole DDS Chronic periodontitis (Primary Dx) 03/30/2024 Patient Outreach [facility] [address] [place] [phone] Lashell Hatch MD Pre-visit Planning ((Unable to reach for PVP screening, LVM)) 03/17/2024 Telephone [facility] [address] [place] [phone] Rowan Franklin MA RS APPT 03/05/2024 2:30 PM EST Office Visit [facility] [address] [place] [address] Juwan Nicole DDS Dental abscess (Primary Dx) 03/05/2024 Refill [facility] [address] [place] [phone] Lashell Hatch MD Benign hypertension 03/05/[address] [address] Lashell Hatch MD Nurse Triage from Last [...] is your housing situation today? I have broderickheber bansal 08/08/[address] you [...] 04/08/2024 10:37 AM EST Plan of Treatment Upcoming Encounters Date Type Department Care Team (Late st Contact Info) Description 06/15/2024 10:15 AM EDT Office Visit [facility] [address] [place] [address] Lashell Hatch MD [address] [place] [address] Health Maintenance Due Date Last Done Comments CT Colonography 1960 Colonoscopy 1960 Colorectal Cancer Screening 1960 Dental Prophylaxis 1960 FIT DNA/Cologuard 1960 FIT 1960 FOBT 1960 Sigmoidoscopy 1960 Diabetes: Foot Exam 1970 Diabetes: Urine Protein Screening 10/24/1979 Hepatitis A Vaccines (1 of 2 - [...] 2023 , 03/05/2018, 03/26/2016, Additional history exists Diabetes: Hemoglobin A1C 07/07/2024 025, 03/07/2023, 05/05/2020 SDOH Screening 08/07/2024 08/08/2023 Depression Monitoring (PHQ-9) 10/06/2024 04/08/2024, 04/08/2024 Alcohol/Substance Use Screening 04/08/2025 04/08/2024 Depression Screening 04/08/2025 04/08/2024, 04/08/19 Lipid Panel 04/08/2025 04/08/2024, 05/05/2020 Tobacco Screening 04/08/2025 04/08/2024 Eye Exam 06/05/2025 06/06/2023, 05/09, 06/06/2023, Additional history exists Cervical Cancer Screening 06/23/2025 HPV/Cotest 06/23/2025 06/23/2020 DTaP/Tdap/Td Vaccines (3 - Td or Tdap) 01/09/2026 01/10/2016, 06/02/2012, 07/18/1999 Dental X-Ray: Full Mouth 03/06/2027 03/05/2024, 0708/2014 Hepatitis B Vaccines Completed 11/10/2014, 01/15/2001, 11/09/1999, Additional history exists Zoster Vaccines Completed 02/01/2020, 03/17/2019 HIV Screening Completed 04/08/2024 Hepatitis C Screening Completed 04/08/2024 HIB Vaccines Aged Out No longer eligi [...] 11:10 AM EST Urinary incontinence, unspecified type HEPATITIS C AB W/REFL TO HCV RNA, QN, PCR Routine 04/08/2024 11:10 AM EST Nonalcoholic fatty liver disease HIV 1/2 ANTIGEN/ANTIBODY, FOURTH GENERATION W/RFL Routine 04/08/2024 11:10 AM EST Nonalcoholic fatty liver disease CBC WITH AUTO DIFFERENTIAL Routine 04/08/2024 11:10 AM EST Major depression, recurrent, chronic (CMS/HCC) LIPID PANEL, STANDARD Routine 04/08/2024 11:10 AM EST Essential hypertension COMPREHENSIVE METABOLIC PANEL Routine 04/08/2024 11:10 AM EST Essential hypertension HEMOGLOBIN A1C Routine 04/08/2024 11:10 AM EST Essential hypertension TSH W/REFLEX TO FT4 Routine 04/08/2024 1 1:10 AM EST Essential hypertension NO CHARGE VISIT Routine 04/02/2024 2:30 PM EST CASE PRESENTATION, DETAILED AND EXTENSIVE TREATMENT PLANNING Routine 03/05/2024 2:30 PM EST PANORAMIC RADIOGRAPHIC IMAGE Routine 03/05/2024 2:30 PM EST 15 UL PALLIATIVE (EMERGENCY) TREATMENT OF DENTAL PAIN - MINOR PROCEDURE Routine 03/05/2024 2:30 PM EST MAMMOGRAM GENERIC Routine 07/13/2020 11: 30 AM EDT HPV MRNA E6/E7 REFLEX TO HPV 16, 18/45 Routine 06/23/2020 10:36 AM EDT THINPREP PAP Routine 06/23/2020 10:36 AM EDT INTRAORAL - COMPLETE SERIES OF RADIOGRAPHIC IMAGES Routine 09/22/2014 12:00 AM EDT COMPREHENSIVE ORAL EVALUATION - NEW OR ESTABLISHED PATIENT Routine 09/22/2014 12:00 AM EDT from Last 3 Months or Most Recently Relevant to Health Maintenance Results * (ABNORMAL) Urinalysis, Complete, with Reflex to Culture (04/08/2024 11:10 AM EST) Color Urine Dark Yellow [facility] Appearance Urine Cloudy [facility] PH 6.0 5.0 - 9.0 [facility] Glucose Urine UA Negative Negative mg/dL [facility] Urine Blood Negative Negative [facility] Specific [place] - Urine 1.025 1.005 - 1.025 [facility] Urine Protein Trace Neg-Trace mg/dL [facility] Urine Ketones Trace Negative mg/dL [facility] Nitrite Urine Negative Negative [facility] Leukocyte Esterase Urine Trace(A) Negative [facility] RBC Urine 0-2 0 - 2 /HPF [facility] Urine WBC 0-5 0 - 5 /HPF [facility] Urine Squamous Epithelial Cell 6-10 0 - 2 /HPF [facility] Urine Bacteria 1+ None Seen [facility] Hyaline Casts, Urine 0-2 0 - 2 /LPF [facility] Urine 04/08/2024 11:1 0 AM EST 04/08/2024 1:05 PM EST Narrative [facility] - 04/08/2024 1:29 PM EST Urine, Clean Catch us Lashell Hatch MD LAB URINE ORDERABLES Final Res ult [facility] [address] [place], [place] [phone] * TSH W/Reflex to FT4 (04/08/2024 11:10 AM EST) TSH reflex Free T4 3.88 0.32 - 4.0 uIU/mL [facility] Blood Venous blood specimen / Unknown 04/08/2024 11:10 AM EST 04/08/2024 12:57 PM EST us Lashell Hatch MD LAB BLOOD ORDERABLES Final Res ult [facility] [address] [place] [address] [phone] * (ABNORMAL) CBC auto differential (04/08/2024 11:10 AM EST) White Blood Count 4.8 4.8 - 10.8 X10*3/uL [facility] Red Blood Count 4.79 4.20 - 5.50 X10*6/uL [facility] Hemoglobin 14.7 12.0 - 16.0 g/dl [facility] Hematocrit 43.6 37.0 - 47.0 % [facility] Mean Corpuscular Volume 91.0 80.0 - 98.0 fL [facility] Mean Corpuscular Hemoglobin 30.7 27.0 - 33.0 pg [facility] Mean Corpuscular HGB Conc 33.7 31.0 - 35.0 g/dl [facility] Red Cell Distribution Width 12.5 11.0 - 16.0 % [facility] Platelet Count 249 160 - 400 X10*3/uL [facility] Mean Platelet Volume 10.6 9.4 - 12.3 fL [facility] Neutrophils Percent Auto 49.9 45 - 73 % [facility] Imm Gran Pct Auto 0.4 0.0 - 0.4 % [facility] Lymphocytes Percent Auto 34.0 20 - 40 % [facility] Monocytes Percent Auto 11.1(H) 2 - 11 % [facility] Eosinophils Percent Auto 3.8 0 - 4 % [facility] Basophils Percent Auto 0.8 0 - 2 % [facility] NRBC Pct Auto 0.0 0.0 - 0.2 /100WBC [facility] Neutrophils Absolute Auto 2.4 2.0 - 8.3 x10*3/uL [facility] Imm Gran Abs Auto 0.02 0.00 - 0.03 X10*3/uL [facility] Lymphocytes Absolute Auto 1.6 1.2 - 4.9 X10*3/uL [facility] Monocytes Absolute Auto 0.5 0.1 - 1.2 X10*3/uL [facility] Eosinophils Absolute Auto 0.2 0.0 - 0.4 X10*3/uL [facility] Basophils Absolute Auto 0.0 0.0 - 0.2 X10*3/uL [facility] NRBC Abs Auto 0.000 0.0 - 0.012 X10*3/uL [facility] Blood Venous blood specimen / Unknown 04/08/2024 11:10 AM EST 04/08/2024 12:57 PM EST Lashell Hatch MD LAB BLOOD ORDERABLES Final Res ult Performing Organization Address [facility]/ZIP Co de Phone Number [facility] [address] [place] [phone] * Hepatitis C Antibody with Reflex to HCV, RNA, Quantitative, Real-Time PCR (04/08/2024 11:10 AM EST) Hepatitis C Antibody Nonreactive Nonreactive [facility] Comment:Antibodies to HCV no t detected; does not exclude early acuteHCV infection. Blood Venous blood specimen / Unknown 04/08/2024 11:10 AM EST 04/08/2024 12:57 PM EST Lashell Hatch MD LAB BLOOD ORDERABLES Final Res ult Performing Organization Address [facility] Co de Phone Number [facility] [address] [place] [address] [phone] * HIV-1/2 Antigen and Antibodies, Fourth Generation, with Reflexes (04/08/2024 11:10 AM EST) HIV AB/AG Nonreactive Nonreactive [facility] Comment:HIV-1 p24 Ag and/or HIV-1/HIV-2 Ab not detected.A test result that is nonreactive does not exclude thepossibility of exposure to or infection with HIV-1 and/orHIV-2. Nonreactive results in this assay for individualswith prior exposure to HIV-1 and/or HIV-2 may be due toantigen and antibody levels that are below the limit ofdetection of this assay.The [employer] HIV Ag/Ab Combo assay result andsupplemental assay results should be interpreted inconjunction with the patient's clinical presentation,history and other laboratory results. If the results areinconsistent with clinical evidence, additional testing issuggested to confirm the result. Blood Venous blood specimen / Unknown 04/08/2024 11:10 AM EST 04/08/2024 12:57 PM EST Lashell Hatch MD LAB BLOOD ORDERABLES Final Res ult Performing Organization Address [facility] Co de Phone Number [facility] [address] [place] [phone] * (ABNORMAL) Hemoglobin A1c (04/08/2024 11:10 AM EST) Hemoglobin A1c 7.4(H) <6.0 % [facility] Comment:Hemoglobin A1C Refer ence Range Adults: 4.8 - 6.0 % Non diabetic: < 6.0 % Goal: < 7.0 %Additional Action Suggested: > 8.0 %Note: Hemoglobin A1c results are invalid for patients with abnormal amounts of HbF. Blood transfusions may impact the HbA1c concentration in the patient sample. Estimated Average Glucose 166 mg/dL [facility] Comment:eAG = Estimated ave rage glucose which is %A1C expressed asaverage glucose, using the formula of the C8B-UkqwirrQxevyke Glucose study (ADAG), Diabetes Care, Vol.31,#8,Oct. 2007 Blood Venous blood specimen / Unknown 04/08/2024 11:10 AM EST 04/08/2024 12:57 PM EST Lashell Hatch MD LAB BLOOD ORDERABLES Final Res ult Performing Organization Address City/[facility]/ZIP Co de Phone Number [facility] [address] [place] [phone] [phone] * (ABNORMAL) Lipid Panel, Standard (04/08/2024 11:10 AM EST) Triglycerides 113 <150 mg/dL [facility] Comment:Desirable Triglyceri de: less than 150 mg/dLBorderline High Triglyceride 150-199 mg/dLHigh Triglyceride: 200-499 mg/dLVery High Triglyceride: greater than or equal to 5OO mg/dL Cholesterol 216(H) <200 mg/dL [facility] Comment:Desirable Cholestero l: less than 200 mg/dLBorderline High Cholesterol: 200-239 mg/dLHigh Cholesterol: greater than 239 mg/dL LDL Cholesterol Calculated 136(H) <100 mg/dL [facility] Comment:Desirable LDL: less than 100 mg/dLNear Optimal/Above Optimal LDL: 110- 129 mg/dLBorderline High LDL: 130-159 mg/dLHigh LDL: 160-189 mg/dLVery High LDL: greater than or equal to 190 mg/dL HDL Cholesterol 58 >40 mg/dL [facility] Comment:Desirable HDL: great er than 40 mg/dL Note: This HDL assay may give artificially low results in patients with liver disease. Blood Venous blood specimen / Unknown 04/08/2024 11:10 AM EST 04/08/2024 12:57 PM EST us Lashell Hatch MD LAB BLOOD ORDERABLES Final Res ult [facility] [address] [place] [phone] * (ABNORMAL) Comprehensive Metabolic Panel (04/08/2024 11:10 AM EST) Sodium 139 135 - 145 mmol/L [facility] Potassium 3.8 3.3 - 5.1 mmol/L [facility] Chloride 106 96 - 108 mmol/L [facility] Carbon Dioxide 27 22 - 29 mmol/L [facility] Anion Gap 10(L) 12 - 20 [facility] Urea Nitrogen (BUN) 12 9 - 16 mg/dL [facility] Creatinine, Serum 0.58 0.5 - 1.4 mg/dL [facility] Estimated Glomerular Filt Rate >60 [facility] Comment:Chronic Kidney Disea se: Estimated GFR < 60 mL/min/1.57x2Rdozjl Kidney Disease: Estimated GFR < 15 mL/min/1.73m2 Glucose 150(H) 60 - 115 mg/dL [facility] Calcium 8.8 8.4 - 10.2 mg/dL [facility] Bilirubin, Total 0.7 0.0 - 1.0 mg/dL [facility] Aspartate Amino Transferase 56(H) 5 - 31 U/L [facility] Alanine Aminotransferase 57(H) 0 - 31 U/L [facility] Total Protein 8.0 6.5 - 8.0 g/dL [facility] Albumin Level 3.6 3.5 - 5.0 g/dL [facility] Alkaline Phosphatase 154(H) 39 - 117 U/L [facility] Blood Venous blood specimen / Unknown 04/08/2024 11:10 AM EST 04/08/2024 12:57 PM EST Lashell Hatch MD LAB BLOOD ORDERABLES Final Res ult [facility] [address] [place] [phone] * Mammography Report 1 (07/13/2020 11:30 [...] historic and ?? current clinical information. ?? Title I Assistant : [facility] Comment: DCR, CT(ASCP) CT screening location: [address] ??[phone] Interpretation/R esult: Negative for intraepithelial lesion or malignancy. [facility] LMP: NONE GIVEN [facility] Prev. BX: NONE GIVEN [facility] Prev. PAP: NONE GIVEN [facility] SOURCE: None given [facility] Statement Of Adequacy: [facility] Comment: Satisfactory for evaluation. Endocervical/transformation zone component absent. 06/23/2020 10:3 6 AM EDT Lashell Hatch MD LAB PATHOLOGY ORDERABLES Final Result [facility] [address] * HPV mRNA E6/E7 REFLEX TO HPV 16, 18/45 (06/23/2020 10:36 AM EDT) HPV nRNA E6/E7 Not Detected Not Detected [facility] Comment: Methodology: Research Laboratory Manager-Mediated Amplification This assay detects E6/E7 viral messenger RNA (mRNA) from 14 high-risk HPV types (16,18,31,33,35,39,45,51,52,56,58,59,66,68). ? The analytical performance characteristics of this assay have been determined by [employer]. The modifications have not been cleared or approved by the FDA. This assay has been validated pursuant to the CLIA regulations and is used for clinical purposes. ?? For additional information, please refer to http://education.[employer]/faq/KCI478r5 (This link if provided for information/ educational purposes only.) 06/23/2020 10:3 6 AM EDT us Lashell Hatch MD LAB CYTOLOGY ORDERABLES Final Result [facility] [address] from Last 3 Months or Most Recently Relevant to Health Maintenance Insurance C3 [facility] MEDICAID STAND ADULT Care Teams Edge Gluer Relationship Specialty Start Date End Date Lashell Hatch MD [address] [place] [address] [phone] PCP - General Family Medicine 11/08/19
--- OUTSIDE RECORDS SUMMARY | 2024-05-13 16:05 | XMS_ITS | Encounter Summary ---
Author Organization [employer] Address [address] [place] [address] Care Team Providers Care Pallet Stone Positioner Name Role Phone Lashell Hatch MD Primary Care Provider [phone] Encounter Details Date Type Department Care Team (Late st Contact Info) Description 12/18/2023 Orders Only [facility] [address] [place], [place] [phone] Lashell Hatch MD [address] [place], [place] [phone] Essential hypertension (Primary Dx); Hypertensive urgency Social [...] Description 06/15/2024 10:15 AM EDT Office Visit [facility] [address] [place], [place] [phone] Lashell Hatch MD [address] [place], [place] [phone] Scheduled Orders Name Type Priority Associated Diagnoses [...] documented as of this encounter Care Teams Pallet Stone Positioner Relationship Specialty Start Date End Date Lashell Hatch MD [address] [place], [place] [phone] PCP - General Family Medicine 11/08/19 documented as of this encounter
== END 2024-05-13 13:15 | disposition home or self-care (01) ==
LOC: HO.SH 13:14
PROVIDERS: Visit Provider General Practice
DX: Z01.118 Encounter for examination of ears and hearing with other abnormal findings (principal); Z46.1 Encounter for fitting and adjustment of hearing aid; H90.3 Sensorineural hearing loss, bilateral
CPT/HCPCS: 92557; 92567; 92591

== ENCOUNTER 2024-06-10 12:41 | Outpatient (REF) | payer MEDICAID, SELFPAY ==
--- NOTE | 2024-06-10 13:06 | MHC.AU.HA2 ---
Hearing Instrument Fitting- Adult- Binaural Date of Visit: 06/10/24 Hearing Instruments Dispensed: Right Ear: Trung, Model, Color, Serial Number: Carolann Gutierrez [id number]-R SN: [id number] Color: Graphite Bright Webmaster Repair Warranty: 07/01/2027 Webmaster Loss and Damage Warranty: 07/01/2027 [facility] Service Plan: 06/10/2025 Battery Size: Rechargeable Manager Relocation/Slim Tube: 1M Earmold/Dome/CShell/SlimTip: Small vented dome (no retention tail) Type of Wax Guard: Cerustop Left Ear: Make, Model, Color, Serial Number: Carolann Mathiaso [id number]-R SN: [id number] Color: Graphite Bright Webmaster Repair Warranty: 07/01/2027 Webmaster Loss and Damage Warranty: 07/01/2027 [facility] Service Plan: 06/10/2025 Battery Size: Rechargeable Manager Relocation/Slim Tube: 1M Earmold/Dome/CShell/SlimTip: Small vented dome (no retention tail) Type of Wax Guard: Ceustop Accessories/Assistive Technology: Phonak Bench Precision Assembler ANAT SN: [id number] Summary of Fitting: Performed test box measures prior to appointment. Could not run real ear measures due to technical difficulties. Programmed to initial fit settings with good subjective benefit. Discussed care, use, and rechargeability including manually turning on/off, VC use, and changing domes and wax guards. No interest in bluetooth. As a previous SCHNEIDER use, otherwise familiar with general maintenance, insertion/removal, etc. Recommendations: A hearing instrument follow-up was scheduled. Diagnosis Code(s): Primary Diagnosis: H90.3 Bilateral Sensorineural Hearing Loss Signature: Provider: Elmo Nevarez, [facility]
--- OUTSIDE RECORDS SUMMARY | 2024-06-10 13:43 | XMS_ITS | Encounter Summary ---
Author Organization [employer] Address [address] [place] [address] Care Team Providers Care Livestock Yard Attendant Name Role Phone Lashell Hatch MD Primary Care Provider [phone] Encounter Details Date Type Department Care Team (Late st Contact Info) Description 12/18/2023 Orders Only [facility] [address] [place], [place] [phone] Lashell Hatch MD [address] [place], [place] [phone] Essential hypertension (Primary Dx); Hypertensive urgency Social [...] Description 06/15/2024 10:15 AM EDT Office Visit [facility] [address] [place], [place] [phone] Lashell Hatch MD [address] [place], [place] [phone] Scheduled Orders Name Type Priority Associated Diagnoses [...] documented as of this encounter Care Teams Livestock Yard Attendant Relationship Specialty Start Date End Date Lashell Hatch MD [address] [place], [place] [phone] PCP - General Family Medicine 11/08/19 documented as of this encounter
--- OUTSIDE RECORDS SUMMARY | 2024-06-10 13:43 | XMS_ITS | Clinical Summary ---
Author Organization [employer] Address [address] [facility] 7[address] [place] [address] Care Team Prov[address] Care Court Deputy Name Role Phone Lashell Hatch MD Primary Care Provider [phone] Allergies Active Allergy Reactions Criticality Noted Date Comments Jabari Inhibitors Cough 07/27/2014 Lisinopril Cough 03/05/2024 Medications * This document contains information received from the source organization and may not represent a complete record from that organization. Ventolin HFA 108 (90 Base) MCG/ACT inhaler INHALE 2 PUFFS BY MOUTH EVERY 4 HOURS 18 g 09/24/19 24 Active fluticasone furoate (Arnuity Ellipta) 100 MCG/ACT inhaler Inhale 1 puff Once per day. 1 each 09/24/19 24 025 Active chlorhexidine (Peridex) 0.12 % solutionIndicati ons:Dental abscess Swish 15 mL morning and night for 1 minute. Spit, do not swallow. Do not eat or drink for 30 minutes following use. 473 mL 03/05/20 24 Active losartan-hydroCH LOROthiazide (Hyzaar) 100-25 MG tabletIndication s:Benign hypertension TAKE 1 TABLET BY MOUTH EVERY MORNING 90 tablet 3 03/05/20 24 Active amLODIPine (Norvasc) 10 MG tabletIndication s:Benign hypertension TAKE 1 TABLET BY MOUTH EVERY MORNING 90 tablet 3 03/05/20 24 Active FLUoxetine (PROzac) 20 MG capsuleIndicatio ns:Depressive disorder Take 1 capsule (20 mg) by mouth Once per day. 90 capsule 3 04/08/19 25 026 Active nabumetone (Relafen) 500 MG tablet Take 1 tablet (500 mg) by mouth 2 times daily. 60 tablet 11 04/10/19 25 026 Active metFORMIN (Glucophage) 500 MG tabletIndication s:Type 2 diabetes mellitus without complication, without long-term current use of insulin (CMS/HCC) Take 1 tablet (500 mg) by mouth with breakfast and with evening meal. 60 tablet 11 04/10/19 25 026 Active topiramate (Topamax) 25 MG tabletIndication s:Morbid obesity (CMS/HCC) TAKE 1 TABLET BY MOUTH EVERY MORNING 90 tablet 3 05/19/19 25 Active topiramate (Topamax) 25 MG tabletIndication s:Morbid obesity (CMS/HCC) TAKE 1 TABLET BY MOUTH EVERY MORNING 90 tablet 1 08/01/19 24 025 Discontinued Active Problems Problem Noted Date Diagnosed Date [...] (pronouns she/her/hers) with previous documented hx of Depression.MH services including OP Psychotherapy psychopharmacology who presents [...] intervention , [facility] needed, Comply with medication [...] Encounters Date Type Department Care Team Description 05/28/2024 Telephone [facility] [address] [place] [address] Lashell Hatch MD Hearing Aid clearance 05/21/2024 Population Health Risk Score [facility] Department [address] [facility] [address] [place] [address] Provider, Population Health Generic 05/18/2024 Refill [facility] [address] [place] [address] Lashell Hatch MD Morbid obesity (CMS/HCC) 05/13/2024 Telephone [facility] [address] [place] [address] Lashell Hatch MD [employer] ([employer] Bath seat with back) 04/29/2024 Telephone [facility] [address] [place], [place] [phone] Lashell Hatch MD [employer] 04/29/2024 Telephone [facility] [address] [place], [place] [phone] Lashell Hatch MD [employer] 04/16/[address] [address] Mary Fernández, RN Results 04/08/2024 10:30 AM EST Office Visit [address] [phone] Lashell Hatch MD Essential hypertension (Primary Dx); [...] to 44.9 in adult, unspecified obesity type (CMS/HCC); Type 2 diabetes mellitus without complication, without long-term current use of insulin (CMS/HCC) 04/08/2024 Travel 04/02/2024 2:30 PM EST Office Visit [facility] [address] [place] [address] [phone] Juwan Nicole DDS Chronic periodontitis (Primary Dx) 03/30/2024 Patient Outreach [address] [phone] Lashell Hatch MD Pre-visit Planning ((Unable to reach for PVP screening, LVM)) 03/17/[address] [phone] Rowan [place] MA RS APPT from Last 3 Months Immunizations Name Administration [...] Description 06/15/2024 10:15 AM EDT Office Visit [facility] [address] [place] [address] Lashell Hatch MD [address] [place] [address] Health Maintenance Due Date Last Done Comments [...] 04/08/2025 04/08/2024 Depression Screening 04/08/2025 04/08/2024, 04/08/19 25 Lipid Panel 04/08/2025 04/08/2024, 05/05/2020 Tobacco Screening 04/08/2025 04/08/2024 Eye Exam 06/05/2025 06/06/2023, 05/09, 06/06/2023, Additional history exists Cervical Cancer Screening 06/23/2025 HPV/Cotest 06/23/2025 06/23/2020 DTaP/Tdap/Td Vaccines (3 - Td or Tdap) 01/09/2026 01/10/2016, 06/02/2012, 07/18/1999 Dental X-Ray: Full Mouth 03/06/2027 03/05/2024, 09/07 Hepatitis B Vaccines Completed 11/10/2014, 01/15/2001, 11/09/1999, [...] CHARGE VISIT Routine 04/02/2024 2:30 PM EST PANORAMIC RADIOGRAPHIC IMAGE Routine 03/05/2024 2:30 PM EST MAMMOGRAM GENERIC [...] 11:10 AM EST) Color Urine Dark Yellow [facility] Appearance Urine Cloudy [facility] PH 6.0 5.0 - 9.0 [facility] Glucose Urine UA Negative Negative mg/dL [facility] Urine Blood Negative Negative [facility] Specific Hemphill - Urine 1.025 1.005 - 1.025 [facility] Urine Protein Trace Neg-Trace mg/dL [facility] Urine Ketones Trace Negative mg/dL [facility] Nitrite Urine Negative Negative [facility] Leukocyte Esterase Urine Trace(A) Negative [facility] RBC Urine 0-2 0 - 2 /HPF [facility] Urine WBC 0-5 0 - 5 /HPF [facility] Urine Squamous Epithelial Cell 6-10 0 - 2 /HPF [facility] Urine Bacteria 1+ None Seen [facility] Hyaline Casts, Urine 0-2 0 - 2 /LPF [facility] Urine 04/08/2024 11:1 0 AM EST 04/08/2024 1:05 PM EST Narrative [facility] - 04/08/2024 1:29 PM EST Urine, Clean Catch us Lashell Hatch MD LAB URINE ORDERABLES Final Res ult [facility] [address] [place], [place] [phone] * TSH W/Reflex to FT4 (04/08/2024 11:10 AM EST) TSH reflex Free T4 3.88 0.32 - 4.0 uIU/mL [facility] Blood Venous blood specimen / Unknown 04/08/2024 11:10 AM EST 04/08/2024 12:57 PM EST us Lashell Hatch MD LAB BLOOD ORDERABLES Final Res ult [facility] [address] [place] [address] [phone] * (ABNORMAL) CBC auto differential (04/08/2024 11:10 AM EST) White Blood Count 4.8 4.8 - 10.8 X10*3/uL [facility] Red Blood Count 4.79 4.20 - 5.50 X10*6/uL [facility] Hemoglobin 14.7 12.0 - 16.0 g/dl [facility] Hematocrit 43.6 37.0 - 47.0 % [facility] Mean Corpuscular Volume 91.0 80.0 - 98.0 fL [facility] Mean Corpuscular Hemoglobin 30.7 27.0 - 33.0 pg [facility] Mean Corpuscular HGB Conc 33.7 31.0 - 35.0 g/dl [facility] Red Cell Distribution Width 12.5 11.0 - 16.0 % [facility] Platelet Count 249 160 - 400 X10*3/uL [facility] Mean Platelet Volume 10.6 9.4 - 12.3 fL [facility] Neutrophils Percent Auto 49.9 45 - 73 % [facility] Imm Gran Pct Auto 0.4 0.0 - 0.4 % [facility] Lymphocytes Percent Auto 34.0 20 - 40 % [facility] Monocytes Percent Auto 11.1(H) 2 - 11 % [facility] Eosinophils Percent Auto 3.8 0 - 4 % [facility] Basophils Percent Auto 0.8 0 - 2 % [facility] NRBC Pct Auto 0.0 0.0 - 0.2 /100WBC [facility] Neutrophils Absolute Auto 2.4 2.0 - 8.3 x10*3/uL [facility] Imm Gran Abs Auto 0.02 0.00 - 0.03 X10*3/uL [facility] Lymphocytes Absolute Auto 1.6 1.2 - 4.9 X10*3/uL [facility] Monocytes Absolute Auto 0.5 0.1 - 1.2 X10*3/uL [facility] Eosinophils Absolute Auto 0.2 0.0 - 0.4 X10*3/uL [facility] Basophils Absolute Auto 0.0 0.0 - 0.2 X10*3/uL [facility] NRBC Abs Auto 0.000 0.0 - 0.012 X10*3/uL [facility] Blood Venous blood specimen / Unknown 04/08/2024 11:10 AM EST 04/08/2024 12:57 PM EST Lashell Hatch MD LAB BLOOD ORDERABLES Final Res ult Performing Organization Address [facility]/ZIP Co de Phone Number [facility] [address] [place] [phone] * Hepatitis C Antibody with Reflex to HCV, RNA, Quantitative, Real-Time PCR (04/08/2024 11:10 AM EST) Hepatitis C Antibody Nonreactive Nonreactive [facility] Comment:Antibodies to HCV no t detected; does not exclude early acuteHCV infection. Blood Venous blood specimen / Unknown 04/08/2024 11:10 AM EST 04/08/2024 12:57 PM EST Lashell Hatch MD LAB BLOOD ORDERABLES Final Res ult Performing Organization Address [facility] Co de Phone Number [facility] [address] [place] [phone] * HIV-1/2 Antigen and Antibodies, Fourth Generation, with Reflexes (04/08/2024 11:10 AM EST) HIV AB/AG Nonreactive Nonreactive [facility] Comment:HIV-1 p24 Ag and/or HIV-1/HIV-2 Ab not detected.A test result that is nonreactive does not exclude thepossibility of exposure to or infection with HIV-1 and/orHIV-2. Nonreactive results in this assay for individualswith prior exposure to HIV-1 and/or HIV-2 may be due toantigen and antibody levels that are below the limit ofdetection of this assay.The [employer] HIV Ag/Ab Combo assay result andsupplemental assay results should be interpreted inconjunction with the patient's clinical presentation,history and other laboratory results. If the results areinconsistent with clinical evidence, additional testing issuggested to confirm the result. Blood Venous blood specimen / Unknown 04/08/2024 11:10 AM EST 04/08/2024 12:57 PM EST Lashell Hatch MD LAB BLOOD ORDERABLES Final Res ult Performing Organization Address [facility]/ZIP Co de Phone Number [facility] [address] [place] [phone] * (ABNORMAL) Hemoglobin A1c (04/08/2024 11:10 AM EST) Hemoglobin A1c 7.4(H) <6.0 % [facility] Comment:Hemoglobin A1C Refer ence Range Adults: 4.8 - 6.0 % Non diabetic: < 6.0 % Goal: < 7.0 %Additional Action Suggested: > 8.0 %Note: Hemoglobin A1c results are invalid for patients with abnormal amounts of HbF. Blood transfusions may impact the HbA1c concentration in the patient sample. Estimated Average Glucose 166 mg/dL [facility] Comment:eAG = Estimated ave rage glucose which is %A1C expressed asaverage glucose, using the formula of the A8R-YyyidfaKuxsnus Glucose study (ADAG), Diabetes Care, Vol.31,#8,Oct. 2007 Blood Venous blood specimen / Unknown 04/08/2024 11:10 AM EST 04/08/2024 12:57 PM EST Lashell Hatch MD LAB BLOOD ORDERABLES Final Res ult [facility] [address] [place] [address] [phone] * (ABNORMAL) Lipid Panel, Standard (04/08/2024 11:10 AM EST) Triglycerides 113 <150 mg/dL [facility] Comment:Desirable Triglyceri de: less than 150 mg/dLBorderline High Triglyceride 150-199 mg/dLHigh Triglyceride: 200-499 mg/dLVery High Triglyceride: greater than or equal to 5OO mg/dL Cholesterol 216(H) <200 mg/dL [facility] Comment:Desirable Cholestero l: less than 200 mg/dLBorderline High Cholesterol: 200-239 mg/dLHigh Cholesterol: greater than 239 mg/dL LDL Cholesterol Calculated 136(H) <100 mg/dL [facility] Comment:Desirable LDL: less than 100 mg/dLNear Optimal/Above Optimal LDL: 110- 129 mg/dLBorderline High LDL: 130-159 mg/dLHigh LDL: 160-189 mg/dLVery High LDL: greater than or equal to 190 mg/dL HDL Cholesterol 58 >40 mg/dL [facility] Comment:Desirable HDL: great er than 40 mg/dL Note: This HDL assay may give artificially low results in patients with liver disease. Blood Venous blood specimen / Unknown 04/08/2024 11:10 AM EST 04/08/2024 12:57 PM EST us Lashell Hatch MD LAB BLOOD ORDERABLES Final Res ult [facility] [address] [place] [phone] [phone] * (ABNORMAL) Comprehensive Metabolic Panel (04/08/2024 11:10 AM EST) Sodium 139 135 - 145 mmol/L [facility] Potassium 3.8 3.3 - 5.1 mmol/L [facility] Chloride 106 96 - 108 mmol/L [facility] Carbon Dioxide 27 22 - 29 mmol/L [facility] Anion Gap 10(L) 12 - 20 [facility] Urea Nitrogen (BUN) 12 9 - 16 mg/dL [facility] Creatinine, Serum 0.58 0.5 - 1.4 mg/dL [facility] Estimated Glomerular Filt Rate >60 [facility] Comment:Chronic Kidney Disea se: Estimated GFR < 60 mL/min/1.95a1Shkysk Kidney Disease: Estimated GFR < 15 mL/min/1.73m2 Glucose 150(H) 60 - 115 mg/dL [facility] Calcium 8.8 8.4 - 10.2 mg/dL [facility] Bilirubin, Total 0.7 0.0 - 1.0 mg/dL [facility] Aspartate Amino Transferase 56(H) 5 - 31 U/L [facility] Alanine Aminotransferase 57(H) 0 - 31 U/L [facility] Total Protein 8.0 6.5 - 8.0 g/dL [facility] Albumin Level 3.6 3.5 - 5.0 g/dL [facility] Alkaline Phosphatase 154(H) 39 - 117 U/L [facility] Blood Venous blood specimen / Unknown 04/08/2024 11:10 AM EST 04/08/2024 12:57 PM EST Lashell Hatch MD LAB BLOOD ORDERABLES Final Res ult Performing Organization Address City/State/[facility] Co de Phone Number [facility] [address] [place] [phone] * Mammography Report 1 (07/13/2020 11:30 [...] historic and ?? current clinical information. ?? Explosives Operator : SEE COMMENT [facility] Comment: DCR, CT(ASCP) CT screening location: [address] ??[phone] Interpretation/R esult: Negative for intraepithelial lesion or [...] Hatch MD LAB PATHOLOGY ORDERABLES Final Result [facility] [address] * HPV mRNA E6/E7 REFLEX TO HPV 16, 18/45 (06/23/2020 10:36 AM EDT) HPV nRNA E6/E7 Not Detected Not Detected [facility] Comment: Methodology: Senior Security Architect-Mediated Amplification This assay detects E6/E7 viral messenger RNA (mRNA) from 14 high-risk HPV types (16,18,31,33,35,39,45,51,52,56,58,59,66,68). ? The analytical performance characteristics of this assay have been determined by [facility]. The modifications have not been cleared or approved by the FDA. This assay has been validated pursuant to the CLIA regulations and is used for clinical purposes. ?? For additional information, please refer to http://education.[employer]/faq/QNU529r2 (This link if provided for information/ educational purposes only.) 06/23/2020 10:3 6 AM EDT us Lashell Hatch MD LAB CYTOLOGY ORDERABLES Final Result [facility] [address] from Last 3 Months or Most Recently Relevant to Health Maintenance Insurance C[facility] MEDICAID STAND ADULT Care Teams Court Deputy Relationship Specialty Start Date End Date Lashell Hatch MD [address] [place] [phone] PCP - General Family Medicine 11/08/19
--- OUTSIDE RECORDS SUMMARY | 2024-06-10 13:43 | XMS_ITS | Encounter Summary ---
Author Organization [employer] [facility] Address [address] [facility] [address] [place] [address] Care Team Providers Care Touch Up Carver Name Role Phone Lashell Htach MD Primary Care Provider Encounter Details Date Type Department Care Team (Late st Contact Info) Description 03/06/2022 Telephone [facility] [address] [place] [address] Lashell Hatch MD [address] [place] [address] Social History Tobacco Use Types Packs/Day Years [...] Description 06/15/2024 10:15 AM EDT Office Visit [facility] [address] [place] [address] Lashell Hatch MD [address] [place] [address] documented as of this encounter Visit Diagnoses Not on filedocumented in this encounter Care Teams Touch Up Carver Relationship Specialty Start Date End Date Lashell Hatch MD [address] [place] [phone] PCP - General Family Medicine 11/08/19 documented as of this encounter
== END 2024-06-10 12:42 | disposition home or self-care (01) ==
LOC: HO.HAP 12:41
PROVIDERS: Visit Provider General Practice
DX: Z46.1 Encounter for fitting and adjustment of hearing aid (principal); H90.3 Sensorineural hearing loss, bilateral
CPT/HCPCS: 92595; V5011; V5160; V5261

== ENCOUNTER 2024-10-29 10:53 | Outpatient (REF) | payer MEDICAID, SELFPAY ==
--- NOTE | ~2024-10-29 | MM_ITS ---
EXAMINATION: MM SCREENING DIGITAL BREAST TOMOSYNTHESIS, BILATERAL CLINICAL INFORMATION: Screening. Asymptomatic. COMPARISON: Mammography: Comparison is made with available priors TECHNIQUE: Digital breast mammography with tomosynthesis is performed in both the craniocaudal and mediolateral oblique views along with computer-aided detection (CAD). FINDINGS: There are scattered areas of fibroglandular density (ACR BI-RADS breast composition Category b). Left breast marker clip. There are no significant masses, abnormal calcifications, or other abnormalities. MM/MM tomosynthesis screening BI IMPRESSION: No mammographic evidence of malignancy. ASSESSMENT: BI-RADS BI-RADS 2 - Benign Findings RECOMMENDATION: Routine annual mammography screening. 1 year F/U This examination should not preclude the clinical evaluation of a suspicious palpable abnormality. This patient's information was entered into a reminder system with a target due date for their next mammogram. Electronically signed by: Eleonora Marie DO 11/02/2024 12:25 PM EDT
--- OUTSIDE RECORDS SUMMARY | 2024-10-29 10:57 | XMS_ITS | Encounter Summary ---
Author Organization [employer] Address [address] [place] [address] Care Team Providers Care Instructor Psychiatric Aide Name Role Phone Lashell Hatch MD Primary Care Provider [phone] Encounter Details Date Type Department Care Team (Late st Contact Info) Description 12/18/2023 Orders Only [facility] [address] [place] [address] Lashell Hatch MD [address] [place] [address] Essential hypertension (Primary Dx); Hypertensive urgency Social [...] Care Team (Late st Contact Info) Description 11/04/2024 11:30 AM EDT Clinical Support [facility] [address] [place] [address] 11/23/2024 11:00 AM EDT Medication Management [facility] [address] [place] [address] Norma Stark, PharmD [address] [place] [address] 12/10/2024 1:00 PM EDT Office Visit [facility] OPTOMETRY [address] [place] [address] Jacob, Lexy, OD [address] [place] [address] Scheduled Orders Name Type Priority Associated Diagnoses [...] documented as of this encounter Care Teams Instructor Psychiatric Aide Relationship Specialty Start Date End Date Lashell Hatch MD [address] [place] [address] PCP - General Family Medicine 11/08/19 documented as of this encounter
== END 2024-10-29 10:54 | disposition home or self-care (01) ==
LOC: HO.MAMMO 10:53
PROVIDERS: PCP General Practice; Visit Provider General Practice
DX: Z12.31 Encounter for screening mammogram for malignant neoplasm of breast (principal)
CPT/HCPCS: 77063; 77067

== ENCOUNTER → 2024-10-29 11:00 | Outpatient (BNV) | payer MEDICAID, SELFPAY | PROVIDERS: PCP General Practice; Visit Provider Internal Medicine | DX: Z12.31 Encounter for screening mammogram for malignant neoplasm of breast (principal) | CPT/HCPCS: 77063; 77067 ==

== ENCOUNTER 2025-01-07 10:15 | Outpatient (REF) | payer MEDICAID, SELFPAY ==
[2025-01-07 11:53] LABS: Alanine Aminotransferase 59 U/L (0-31); Albumin Level 3.7 g/dL (3.5-5.0); Alkaline Phosphatase 141 U/L (39-117); Anion Gap 12 (12-20); Aspartate Amino Transferase 54 U/L (5-31); Blood Urea Nitrogen 13 mg/dL (9-16); Calcium 9.1 mg/dL (8.4-10.2); Carbon Dioxide 27 mmol/L (22-29); Chloride 103 mmol/L (96-108); Cholesterol 226 mg/dL (<200); Estimated Glomerular Filt Rate > 60; HDL Cholesterol 52 mg/dL (>40); Potassium 3.6 mmol/L (3.3-5.1); Sodium 138 mmol/L (135-145); Total Protein 7.8 g/dL (6.5-8.0); Triglycerides 130 mg/dL (<150)
[2025-01-07 12:26] LABS: Vitamin B12 542 pg/mL (200-900)
== END 2025-01-07 10:16 | disposition home or self-care (01) ==
LOC: HO.HHCL 10:15
PROVIDERS: PCP General Practice; Visit Provider General Practice
DX: E11.9 Type 2 diabetes mellitus without complications (principal); I10 Essential (primary) hypertension
CPT/HCPCS: 36415; 80048; 80061; 80076; 82607